=== PATIENT | female | born 1945 | race Caucasian/White ===

== ENCOUNTER 2016-11-26 10:38 | Inpatient (IN) | payer MEDICARE ==
[~2016-11-26] VITALS: Ht 154.9 cm; Wt 72.0 kg
[~2016-11-26 10:38] MED LIST: AMBIEN5 MG PO; ASA CHILDREN'S81 MG PO; ASPIR 8181 MG PO; ASPIR-TRIN325 MG PO; AUGMENTIN875 MG PO; BACTROBAN OINT.22 GM TP; CHROMIUM PICO200 MC1 PO; COREG DPS3.125 MG PO; GG/CODEINE PO; GLUCAGON1 MG/ML IM; GLUCOPHAGE-DPS500 MG PO; GLUTOSE 1537.5 GM PO; GUAIFENESIN-CODE5 ML PO; HUMALOG100 UNIT/1 SQ; JANUVIA50 MG PO; LANTUS SOL100 UNIT/1 SQ; LANTUS100 UNITS/ SQ; LASIX DPS40 MG PO; LASIX DPS80 MG PO; LASIX40 MG PO; LEVAQUIN DPS250 MG PO; LEVEMIR100 UNIT/1 SQ; LOFIBRA160 MG PO; MAALOX DPS30 ML PO; MIRALAX PACKET17 GM PO; MIRALAX17 GM PO; MYCOSTATIN PWD15 GM TP; MYVITALIFE1 EACH PO; NEURONTIN DPS300 MG PO; NITROSTAT0.4 MG SL; NORCO 5-325 TA1 EACH PO; NORVASC5 MG PO; NOVOLIN N,100 UNITS/ SQ; NOVOLOG FL100 UNIT/1 SQ; NOVOLOG100 UNIT/2 SQ; OCEAN NASAL MIS45 ML NS; PROTONIX40 MG PO; SURFAK DPS240 MG PO; SURFAK240 MG PO; THERA1 EACH PO; THERAPEUTIC MUL1 TAB PO; TRICOR145 MG PO; TRICOR48 MG PO; TYLENOL DPS325 MG PO; TYLENOL EXTRA500 M1 PO; TYLENOL325 MG PO; ULTRAM DPS50 MG PO; VICKS VAPORUB O50 GM TP; XANAX DPS0.5 MG PO; ZOCOR DPS40 MG PO; ZOCOR80 MG PO; ZOLOFT DPS50 MG PO; ZOLOFT100 MG PO; [UNRECOGNIZED DRUG - OTHER] PO; [UNRECOGNIZED DRUG - OTHER] PO
--- NOTE | 2016-11-27 12:11 | ER ---
ADMIT: 11/26/2016 RM/LOC: ER [facility] MR#: [id number] [address] [address] [place] [address] Emergency Room Report SEX: F AGE: 71 : 1945 DATE: 11/26/2016 HISTORY OF PRESENT ILLNESS: A 71-year-old female, slipped, fell, twisted her left ankle, and was brought in with complaints of ankle pain. Past history significant for ankle fracture on the same side for which she is plated and screwed, diabetes, hypertension, and hyperlipidemia. PHYSICAL EXAMINATION: GENERAL: Reveals an elderly female, in mild amount of distress. EXTREMITIES: Her left foot is normal. Left ankle is tender in the medial aspect, superior to the ankle itself is also tender. Knee is unremarkable. LUNGS: Clear to auscultation. ABDOMEN: Benign. X-RAY DATA: X-rays reveal a spiral fracture of the distal tibia, just superior to the screws from prior surgery. I did speak with Dr. Licea. The patient will be admitted for spiral fracture of left distal tibia. Dr. Roa was also contacted for admission as he is the primary physician. DIAGNOSIS: Tibial fracture. Kain Oliver MD/ petey JOB #: [id number] CC: Kain Oliver MD, Attending Physician
--- NOTE | 2016-11-30 11:23 | CO ---
ADMIT: 11/26/2016 RM/LOC: 530 [facility] MR#: [id number] [address] [address] [place] [address] Consultation SEX: F AGE: 71 : 1945 DATE OF CONSULTATION: 11/26/2016 ATTENDING PHYSICIAN: Charlie Roa CONSULTING PHYSICIAN: Regino Ayon MD REASON FOR CONSULTATION: Preoperative evaluation after left ankle fracture. HISTORY OF PRESENT ILLNESS: Ronda is a 71-year-old lady, who is well known to us. She has coronary disease and underwent three-vessel bypass surgery in December of 2014. She also underwent mitral valve replacement with a bioprosthetic valve at that time. She has residual aortic insufficiency, mild aortic stenosis, and severe tricuspid regurgitation with elevated pulmonary pressures which are probably secondary. She has been hospitalized on several occasions with hyperkalemia and elevated blood sugars. She has had acute renal failure and junctional bradycardia which has resolved after correction of her potassium. Apparently, she is also receiving some iron infusions now for chronic anemia. She said she was going in today for a doctor's appointment. I think it was to get iron infusion. She has been very weak. She is unable to walk half a block without having to stop because of her shortness of breath. She also has very weak lower extremities and tends to fall. She said she was just trying to go to her appointment when she turned and fell and injured her left ankle. X-rays in the emergency room show a left tibia and fibular fracture. She is scheduled to go to the OR for pinning tomorrow. She has had a previous fracture on the same side. She has not had a lot of palpitations. She complains of phlegm in the back of her throat and difficulty talking. She has been chronically short of breath, but she has not had increasing edema. She is currently lying supine in the bed. She has not had any PND. No definitive anginal type symptoms are described. Her last echo in September showed a preserved ejection fraction with flattening of the intraventricular septum. The right ventricle had mildly reduced systolic function and the replaced mitral valve appeared to be functioning normally, but there was mild aortic stenosis and [id number] aortic insufficiency and severe tricuspid regurgitation with elevated pulmonary pressures approaching 70. ALLERGIES: SHE HAS HAD LISTED ALLERGIES TO MORPHINE. CURRENT MEDICATIONS: 1. Pantoprazole 40 daily. 2. Gabapentin 300 at bedtime. 3. Sertraline 50 daily. 4. Simvastatin 80 at bedtime. 5. Fenofibrate 160 at bedtime. ADMIT: 11/26/2016 RM/LOC: 530 [facility] MR#: [id number] [address] [address] [facility] Micheal [address] [place] [address] Consultation SEX: F AGE: 71 : 1945 6. Lisinopril 5 daily. 7. Carvedilol 3.125 b.i.d. 8. Lasix 40 daily. 9. Alprazolam 0.5 every 6 hours as needed for anxiety. 10.Lantus 35 units in the morning. 11.NovoLog insulin 5 units with meals and sliding scale. 12.Aspirin 81 daily. 13.Multivitamin and docusate as needed. ILLNESSES: 1. Coronary artery disease as described above. 2. Chronic kidney disease. 3. Prior valve replacement. 4. Aortic insufficiency. 5. Tricuspid regurgitation. 6. Hypertension. 7. Insulin-dependent diabetes. 8. Hyperlipidemia. 9. Peripheral neuropathy. 10.History of seizure disorder. 11.She has peripheral vascular disease, status post carotid endarterectomy the day before bypass in 2014. 12.She has anemia, which is chronic. 13.Anxiety. 14.She has had recurrent bradycardia in the setting of acute renal failure and hyperkalemia. PAST SURGICAL HISTORY: 1. Hysterectomy. 2. Bypass surgery. 3. Mitral valve replacement. 4. Left carotid endarterectomy. 5. She has also had previous left ankle orthopedic surgery. SOCIAL HISTORY: She is retired. She is still living independently at home with her . She is accompanied by her daughter. She is hard of hearing. She denies any recent tobacco use, and no alcohol or illicit drug use. FAMILY HISTORY: Her mother had coronary disease, but I do not believe it was premature. There is also family history of stroke. One brother had cancer. Her mother and grandmother had diabetes. REVIEW OF SYSTEMS: As per the HPI. Otherwise, a full 12-point review of systems was reviewed with the patient as much as possible given her current sedation, and noncontributory. PHYSICAL EXAMINATION: VITAL SIGNS: Blood pressure is 132/48, her pulse is ADMIT: 11/26/2016 RM/LOC: 530 [facility] MR#: [id number] [facility] [place] [address], [place] [address] Consultation SEX: F AGE: 71 : 1945 in the 50s, respirations 18. She is afebrile. O2 sats are 98% on supplemental oxygen. SKIN: Warm and dry. Mildly pale. EYES: Sclerae clear. There is mild conjunctival injection. ENT: Oral mucosa is pink and moist. NECK: Bilateral carotid bruits. There is questionable JVD. CHEST: I could only listen to the anterior lung murcia. She cannot sit up. I do not hear any rhonchi or crackles. No wheezes noted. There is a good respiratory effort given her sedation. HEART: Regular. There is a click in the S1 position and there is a holosystolic murmur heard best along the left sternal border. I do not hear a diastolic murmur. ABDOMEN: Soft and nontender. Obese. MUSCULOSKELETAL: Gait is normal. There is brace in her left lower leg. EXTREMITIES: She is in a brace in the left lower leg. The right lower leg has no evidence of edema and her distal pulses are intact. PSYCHIATRIC: She is sedated but she is alert, oriented and answers most of my questions appropriately albeit slowly. LABORATORY DATA: Sodium was 141, potassium 5.5, her glucose is 92, creatinine is 2.1 and that appears to be about her baseline. AST and ALT are normal. Cardiac enzymes are normal. TSH is 7.67. White count is 4.6, hemoglobin is 8.9, platelets 149,000. IMPRESSION: 1. Left fibula and tibia fracture. 2. Prior mitral valve replacement in 2014. 3. Coronary artery disease, status post three-vessel bypass surgery in 2014. 4. Severe tricuspid regurgitation with probable secondary pulmonary hypertension. 5. Aortic insufficiency. 6. Chronic kidney disease. 7. Peripheral vascular disease, status post prior carotid endarterectomy. 8. History of recurrent hyperkalemia and junctional bradycardia. 9. Insulin-dependent diabetes. RECOMMENDATIONS: I think she is fortunate that she has had revascularization and her mitral valve replaced within the past two years. However, she remains [id number]-cp-snil risk for any surgical procedure given her very poor functional status in combination with multiple comorbidities including her ADMIT: 11/26/2016 RM/LOC: 530 [facility] MR#: [id number] [address] [address] [place] [address] Consultation SEX: F AGE: 71 : 1945 residual tricuspid regurgitation, aortic insufficiency, elevated pulmonary pressures, anemia, and chronic kidney disease. Right now, I think her fluid status is fairly optimized, but it will need to be monitored very closely throughout the perioperative period. We will also need to monitor her electrolytes and watch for acute renal failure, which has led to junctional bradycardia in the past. I would advise holding her TREVOR inhibitor while she is in the hospital. We will also need to follow a very strict fluid management. This was discussed with the patient and her family. They are very reasonable and understanding of her multiple comorbidities and potential risk for surgery. Regino Ayon MD/ petey JOB #: [id number] CC: Charlie Roa, Attending Physician Charlie Roa, Family Physician
--- NOTE | 2016-12-01 14:58 | HP ---
ADMIT: 11/26/2016 RM/LOC: 316 [facility] MR#: [id number] [address] [address] [place] [address] History and Physical SEX: F AGE: 71 : 1945 DATE OF SERVICE: CHIEF COMPLAINT: Pain in the left lower leg and ankle, left leg injury due to fall at home on the morning of 11/26/2016. CLINICAL HISTORY: The patient is a 71-year-old white female, admitted to [facility] after being seen in the ER complaining of left lower leg pain and left ankle pain. She fell at home on the morning of 11/26/2016 while getting ready to go to Dr. Bahena's office for an iron infusion/Venofer for her anemia of chronic disease. The patient does not really recall how she fell. She remembers getting lightheaded or weak while standing in her bathroom. She was found by her son lying on the floor, unable to get up, unable to bear weight on her left leg. She was confused and disoriented at that time. She was brought to the ER, where she was evaluated. X-rays done in the ER show fixation hardware from previous open reduction and internal fixation of a fractured left ankle with a new spiral type fracture of the distal tibia as well as fracture of the distal fibula above the level of her old fusion hardware. The patient was seen in consult by Orthopedics, they have asked us to admit her and they will see her in consultation. She will need to go to the OR for open reduction and internal fixation of her left distal tibia and fibula fracture. Dr. Licea has seen her in consultation and planned to take her to the OR on 11/27/2016. The patient unfortunately has a significant surgical risk because of her multiple health problems. She has significant coronary artery disease, valvular heart disease, chronic congestive failure as well as chronic kidney disease, long-standing poorly- controlled diabetes with diabetic peripheral neuropathy and diabetic peripheral vascular disease. As noted, admitted at this time because of her fracture. Based on the description of her fall, it sounds like she probably got hypoglycemic. She notes that she was diaphoretic and clammy before she had the syncopal or near syncopal episode. She does have a history of cardiac dysrhythmia, but EKG in the ER showed her to be in a sinus bradycardia with no significant ST-T wave changes. She is admitted at this time with plans for cardiac preoperative consultation prior to planned surgery on 11/27/2016. PAST MEDICAL HISTORY: The patient has had numerous recent hospitalizations. She was last hospitalized in May of 2016. At that time, she had fallen and suffered a cervical spine fracture of C1. She had been hospitalized in March of 2016 with acute on chronic renal failure with hyperkalemia and cardiac dysrhythmia. She was hospitalized in January of 2016 with weakness, falls, and orthostatics symptoms. She was hospitalized in November of 2015 with an acute decompensation of her chronic diastolic heart failure. In October of 2015, she was hospitalized with acute renal failure, hyperkalemia, and a bradyarrhythmia. She was hospitalized in June of 2015 with a syncopal episode and closed head injury. In December of 2014, she was hospitalized in [place] and underwent a left carotid endarterectomy on 01/01/2015. She then had a three-vessel CABG at the [facility] in [place] in January of 2015. She cannot remember the dates of all these hospitalizations, these are obtained from old records. Her past medical history includes the followin. Multivessel coronary artery disease, status post three-vessel CABG in January ADMIT: 11/26/2016 RM/LOC: 316 [facility] MR#: [id number] [address] [address] [facility] Micheal [address] [place] [address] History and Physical SEX: F AGE: 71 : 1945 of 2014. 2. Severe mitral regurgitation, status post mitral valve replacement in January of 2015 with bioprosthetic valve. 3. Valvular heart disease with moderate aortic insufficiency. 4. Severe pulmonary hypertension with tricuspid regurgitation. 5. Hypertension. 6. Hyperlipidemia. 7. Type 2 diabetes with long-term poor control and multiple microvascular complications. 8. Diabetic peripheral neuropathy. 9. Diabetic nephropathy with chronic kidney disease, stage 3. 10.Anemia of chronic disease. 11.Carotid occlusive disease, status post left carotid endarterectomy in December of 2014. 12.Chronic GERD/esophageal reflux. 13.Depressive disorder, not otherwise specified. 14.Chronic diastolic heart failure. 15.Chronic cerebrovascular disease. 16.Osteoporosis. PAST SURGICAL HISTORY: Her prior surgical procedures include: 1. CABG with mitral valve replacement on 02/02/2015. 2. Left carotid endarterectomy on 01/01/2015. 3. She has a remote past history of HUGH and BSO years ago. 4. She has history of previous open reduction and internal fixation of trimalleolar fracture of her left ankle in May of 2013. 5. Her C1 cervical fracture was managed non-operatively with halo immobilization of her cervical spine. CURRENT MEDICATIONS: Include the followin. Protonix 40 mg daily. 2. Gabapentin 300 mg at bedtime. 3. Sertraline 50 mg daily. 4. Simvastatin 80 mg at bedtime. 5. Fenofibrate 160 mg at bedtime. 6. Lisinopril 5 mg daily. 7. Coreg 3.125 mg b.i.d. 8. Lasix 40 mg daily. 9. Xanax 0.5 mg every 6 hours as needed for anxiety. 10.Lantus 35 units in the a.m. 11.NovoLog 5 units with each meals plus additional sliding scale. 12.Baby aspirin 81 mg daily. 13.Multivitamin 1 daily. 14.Docusate sodium p.r.n. constipation. ALLERGIES: SHE HAS A HISTORY OF REACTION TO MORPHINE PREVIOUSLY, THIS CAUSED SIGNIFICANT ITCHING. ADMIT: 11/26/2016 RM/LOC: 316 [facility] MR#: [id number] [address] [address] [place] [address] History and Physical SEX: F AGE: 71 : 1945 SOCIAL HISTORY: The patient is retired. She has been living independently at home. She is currently in the process of from her , trying to find her own place to live. The patient denies any recent use of tobacco, was a smoker during her younger years. She denies abuse of alcohol or illicit drug use or any misuse of prescription drugs. FAMILY HISTORY: She notes her mother of a heart attack at age 56. Her mother also had similar problems with poorly-controlled diabetes. She notes her father of lung cancer related to his smoking. She has a brother who of colon cancer, another brother who in childhood of leukemia. She also has a sister, who has lung cancer. In her family, there is a strong history of diabetes, coronary artery disease, and cancer. REVIEW OF SYSTEMS: Difficult to get an accurate review of systems at this time per the patient. She has been given IV fentanyl in the ER and has received additional pain medications. She is very lethargic and sleepy, she will arouse. It is noted that she has been struggling at home for the last couple of months, she has difficulty caring for herself due to her generalized weakness and debility. She has been at significant fall risk. I have attempted to get her into a skilled nursing previously and she had resisted. CONSTITUTIONAL: She has had no recent fevers, chills, or signs of any ongoing infection. HEENT: She denies any new eye, ear, nose, or throat complaints. No upper respiratory congestion. She denies any difficulty with choking or swallowing. No coughing after eating. PULMONARY: She has been having marked difficulty with shortness of breath. She has had to start using O2 continuously because of her severe pulmonary hypertension. The patient has pulmonary hypertension related to her valvular heart disease. She has marked dyspnea on exertion. No cough. No sputum production. CARDIAC: Extensive cardiac history with known coronary artery disease status post three-vessel CABG, history of chronic diastolic heart failure. She has had no recent angina. She has history of past bradyarrhythmia associated with hyperkalemia. She has been hospitalized twice with significant bradyarrhythmia due to renal failure and hyperkalemia. GASTROINTESTINAL: No nausea, vomiting, or diarrhea. She has had no blood in her stools. GENITOURINARY: The patient has history of significant chronic renal disease. Baseline creatinine typically is running around 1.8 to 2.0. She denies any flank pain or dysuria. No signs of UTI. MUSCULOSKELETAL: Having severe pain in her left lower leg. Unable to bear weight on her left leg at this time due to her injury. NEUROLOGIC: She has no prior history of strokes or TIAs. She has had difficulty with orthostatic hypotension. It has been difficult to manage her fluid status. The patient is followed by [facility] Cardiology and Dr. Bahena as well. 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 ENDOCRINE: She has long-standing type 2 diabetes with long-term poor control. ADMIT: 11/26/2016 RM/LOC: 316 [facility] MR#: [id number] [address] [address] [place] [address] History and Physical SEX: F AGE: 71 : 1945 She has been noncompliant with her diabetic management for over 20 years. INTEGUMENT: She has no areas of skin breakdown. She does have significant peripheral vascular disease and marked neuropathy of the lower extremities. PHYSICAL EXAMINATION: VITAL SIGNS: Temp is 97.8, pulse is 60, respirations 18, blood pressure 132/48, O2 saturation 98%. Current weight 157 pounds. GENERAL: The patient is a very frail, debilitated 71-year-old female, who looks significantly older than her stated age. She is a little lethargic and sleepy due to her pain medications. HEENT: Her ears are clear. Hearing is somewhat diminished. Pupils are equal and reactive. Sclerae nonicteric. She has some mild conjunctival injection and inflammation. Vision appears to be grossly intact. Her nose and throat are noninflamed. Oral mucosa is moist. No oral lesions. NECK: Noted to have bilateral carotid bruits. I cannot appreciate any significant neck vein distention. No cervical adenopathy. No neck masses. LUNGS: Noted to be clear anteriorly, diminished in the bases. I do not hear any rhonchi, rales, or wheezes. HEART: Noted to have a regular rhythm. There is a holosystolic murmur heard best along the left sternal border, grade 2/6. No evidence of failure on today's exam. ABDOMEN: Soft, nontender. Obese. Protuberant, but not distended. Bowel sounds are normoactive. No CVA or suprapubic tenderness. EXTREMITIES: Her left lower extremity is in a brace and immobilizer for her ankle and lower leg. She is splinted. She has marked pain on palpation of her left lower leg pain, pain over the lateral aspect of her ankle. She has marked changes of diabetic peripheral vascular disease with essentially absent pedal pulses. Skin is very fragile. She has no sensation to light touch or monofilament testing in either lower extremity up to the level of mid calf. The patient is unable to stand or walk at this time. NEUROLOGICAL: I can see no other new focal deficits, but she is sedated. When aroused, she is alert and oriented and is able to answer most of the questions appropriately. LABORATORY AND X-RAY DATA: Her pre-admission laboratory work revealed her white count to be 4600, hemoglobin is 8.9, platelets 149,000. She has chronic anemia due to her chronic kidney disease. Sodium was 141, potassium 5.5. Blood sugar was 92. Creatinine is 2.1. Cardiac enzymes were normal. TSH is elevated. EKG shows a sinus bradycardia with no significant ST-T wave changes. ASSESSMENT AT THE TIME OF ADMISSION: 1. Fall at home on the morning of 11/26/2016. 2. Acute displaced fracture of the distal tibia and fibula of her left lower extremity. 3. Osteoporosis. 4. Atherosclerotic coronary vascular disease, status post three-vessel CABG in January of 2015. 5. Chronic diastolic heart failure. ADMIT: 11/26/2016 RM/LOC: 316 [facility] MR#: [id number] [address] [address] [facility] RONDA Burton [address] [place] [address] History and Physical SEX: F AGE: 71 : 1945 6. Prior mitral valve replacement in 2014. 7. Severe tricuspid regurgitation with secondary pulmonary hypertension. 8. Aortic insufficiency. 9. Chronic kidney disease, stage 3. 10.Anemia of chronic disease. 11.Type 2 diabetes, insulin-dependent, with long-term poor control. 12.Diabetic peripheral vascular disease. 13.Diabetic neuropathy. 14.Chronic obstructive pulmonary disease. 15.Hypertension. 16.Chronic cerebrovascular disease. 17.Marked debility due to her multiple comorbid medical conditions. PLAN: Plan is to admit the patient. Orthopedics has been consulted, they planned to take her to the OR on 11/27/2016. I will ask [facility] Cardiology to see in consultation for preoperative cardiac clearance. We will also ask Dr. Bahena to be involved since he manages her chronic kidney disease and can help manage her fluid status postoperatively. She has a significant surgical risk. We have discussed the risks and benefits of surgery with her and her family. We really have no option other than to proceed with ORIF. The patient will then need long-term skilled nursing care once she recovers from her surgical procedure. Charlie Roa MD/ petey JOB #: [id number] CC: Charlie Roa, Attending Physician Charlie Roa, Family Physician
--- NOTE | 2016-12-06 07:29 | OR ---
ADMIT: 11/26/2016 RM/LOC: 530 [facility] MR#: [id number] [address] [address] [facility] [place] [address] Operative/Delivery Room Report SEX: F AGE: 71 : 1945 SURGERY DATE: 11/27/2016 SURGEON: Matthew Licea MD PREOPERATIVE DIAGNOSES: Left tib-fib fracture with proximal fibular fracture with distal spiral tibia fracture. She had a previous bimalleolar ankle fracture, open reduction and internal fixation on this side as well. POSTOPERATIVE DIAGNOSES: Left tib-fib fracture with proximal fibular fracture with distal spiral tibia fracture. She had a previous bimalleolar ankle fracture, open reduction and internal fixation on this side as well. PROCEDURES: 1. Removal of medial malleolar screws. 2. Intramedullary nailing of left tib-fib fracture. WOOD FORM BUILDER: WANDY Valle ANESTHESIA: General. ESTIMATED BLOOD LOSS: 50 mL. TOTAL TOURNIQUET TIME: Approximately 75 minutes. COMPLICATIONS: None. CONDITION: Guarded to recovery room. INDICATIONS: The patient is a 71-year-old female with multiple medical comorbidities. She underwent an open reduction and internal fixation of a left bimalleolar ankle fracture about 11 or 12 years ago. She was at home, fell, injuring her left lower extremity, was brought to the emergency room, was found have a distal spiral tibia fracture and a proximal fibular fracture. We discussed the injury as well as treatment options with the patient and her family. She was admitted by Dr. Roa and cleared for surgery by Dr. Roa and Cardiology, stating that she was a high risk. We talked to them about treatment options, told them probably the best thing to do at this point would be removal of the medial screws followed by intramedullary nailing of the tibia fracture. We discussed the procedure as well as risks and benefits with them at length, questions were answered, and they agreed to proceed. DESCRIPTION OF PROCEDURE: After informed consent was obtained, the patient was taken to the operating room, placed on the operative table in supine position. General anesthetic was administered. After adequate general anesthesia, the splint was removed from the left lower extremity. A tourniquet was placed on left upper thigh, and left lower extremities were prepped and draped in usual sterile fashion. Once this was completed, we brought in fluoro, identified our medial malleolar screws. We made a small incision medially dissecting down bluntly to the screws. We then placed a ADMIT: 11/26/2016 RM/LOC: 530 [facility] MR#: [id number] [address] [place] [address] Operative/Delivery Room Report SEX: F AGE: 71 : 1945 guidewire for cannulated screw into the posterior screw. We then placed the screw school boat driver over this, removed the screw without difficulty. We removed the anterior screw in a like fashion by placing a guidewire in the screw and then followed by the cannulated screwdriver and removed this screw as well. Once the screws were removed, we then gravity exsanguinated the left lower extremity, inflated the tourniquet to 300 mmHg. We then placed the leg on the tibial triangle. Fluoroscopy was used to get an x-ray of the knee. We then made a midline incision through the skin and subcutaneous tissues, and then making an incision just medial to the patellar tendon. Once this was completed, we placed an awl in the proximal tibia. Once this was noted to be in good position on both AP and lateral views, we advanced the awl down into the proximal tibia which was noted to be in good position on both AP and lateral views. We then placed a guidewire across the fracture site. Once this was completed, we then sequentially reamed over the guidewire beginning with an 8.5 end cutter, and reaming up to a 10.5. We started getting chatter at 9 mm reamer. We elected to use a 10 mm nail. We measured and elected to use a 315 mm length nail. This was then loaded on the advertising inserter, the 315 mm nail, 9 mm in diameter, was then placed over the guidewire and across the fracture. The fracture was slightly translated after placing the jerome, but was in otherwise good alignment and good length here. Anatomic reduction on the lateral view. The guidewire was then removed. We then placed the guide for the proximal locking screws. We placed two proximal locking screws, one static and one dynamic. I made two small stab incisions medially, placed the guide on the medial cortex of the tibia, drilled and placed the screws in standard AO technique. These screws had a moderate bite. Once this was completed, we removed the nail advertising inserter. Attention was directed to the distal portion of the nail. Getting perfect circles, we placed an anterior to posterior screw by making a small stab incision, dissected down bluntly using the radiolucent drill, measuring and placing an anterior to posterior interlocking screw. This had not a real great bite. We then placed a medial to lateral screw as well, once again getting perfect circles, which was somewhat difficult secondary to the previous fibular plate and screws. We identified the medial to lateral screw hole, placed radiolucent drill after ADMIT: 11/26/2016 RM/LOC: 530 [facility] MR#: [id number] [address] [address] [facility] RONDA Burton [address] [place] [address] Operative/Delivery Room Report SEX: F AGE: 71 : 1945 making a kacie incision, drilled, measured, and placed a medial to lateral screw with a pretty good bite with the screw. Once this was completed, final fluoroscopic views were obtained showing adequate reduction of the tibia fracture in both the AP and lateral views, and the nail and screws were in good position. We then copiously irrigated the wounds. We closed all the stab wounds at this point using skin rc. The midline knee incision, the parapatellar incision was closed using #1 Vicryl in a [id number] fashion. Subcutaneous tissues were closed using 2-0 Vicryl in a simple interrupted fashion. The skin was closed using skin rc. A sterile compressive dressing was then applied consisting of Xeroform, plain gauze, ABDs, Webril. We then placed a posterior splint, overwrapped with an Roger wrap. The patient was then transferred to recovery room in guarded condition. Matthew Licea MD/ petey JOB #: [id number] CC: Charlie Roa, Attending Physician Charlie Roa, Family Physician
--- NOTE | 2016-12-06 07:29 | CO ---
ADMIT: 11/26/2016 RM/LOC: 316 [facility] MR#: [id number] [address] [address] [facility] [place] [address] Consultation Report SEX: F AGE: 71 : 1945 DATE OF CONSULTATION: 11/26/2016 ATTENDING PHYSICIAN: Charlie Roa CONSULTING PHYSICIAN: Matthew Licea MD HISTORY OF PRESENT ILLNESS: This is a 71-year-old female, who was stating that she became trembly with her legs and was unable to find a chair to sit down and she ended up twisting her left ankle and fell to the ground, and she is being brought to the Emergency Department for left ankle pain. The patient states that she had broken her ankle in the past. She has some left ankle pain and some slight left shoulder pain, but has no other complaints. She states that she did not lose consciousness and remembers the events quite clearly. PAST MEDICAL HISTORY: Significant for previous left ankle fracture fixed by Dr. Licea in 2004. Also, significant for diabetes, hypertension, and hyperlipidemia. ALLERGIES: NO KNOWN DRUG ALLERGIES. PHYSICAL EXAMINATION: GENERAL: Reveals an elderly female, somewhat distressed, but is alert and oriented. EXTREMITIES/MUSCULOSKELETAL: Physical exam of the left lower extremity show that the ankle is resting comfortably in posterior splint. Left lower extremity is neurovascularly intact. The patient has full sensation of the foot and can move all toes. The patient is tender to palpation along the distal medial aspect of her left ankle. She is also tender to palpation along the superior lateral aspect of her left leg on the fibular side. Physical exam of shoulder, left shoulder is unremarkable. She has some pain to palpation. Physical exam of other systems are noncontributory at this point. X-RAY EVALUATION: X-rays performed in the Emergency Department do show a left distal tibial spiral fracture just above two previous cannulated screws that were in place. On x-rays of the left tibia, also show a proximal left fibular fracture at this time. ASSESSMENT AND PLAN: At this time, she is going to be admitted, seen by medical primary care, and the plan is to admit for with a left inter-medullary nail for fixation of the tibial fracture per Dr. Licea. Verbal consent, and explanation of the procedure's risks and benefits were discussed with the patient as well as family members that were present. All questions and ADMIT: 11/26/2016 RM/LOC: 316 [facility] MR#: [id number] [address] [place] [id number] [address] Consultation Report SEX: F AGE: 71 : 1945 concerns about the procedure were answered at that time and everyone in the room agreed to move forward with the planned procedure for the morning of 11/27/2016. Upon admission, the patient is going to be seen by primary care and she is going to be admitted and surgery will have a first thing in the morning if she is cleared medically and stable. The patient and family were seen in the ER both by myself and Dr. Licea this afternoon and we believe we answered all the questions concerns the patient and the family members had. We are going to surgically fix the left tibial fracture and we are not going to do surgical intervention on the left fibular fracture as that will heal with weight restrictions postsurgically for the left tibia. EDIT: 11/29/2016 0913 njv WANDY Reyes / Matthew Licea MD / petey JOB #: [id number] CC: Charlie Roa, Attending Physician Charlie Roa, Family Physician
--- NOTE | 2016-12-06 10:33 | CO ---
ADMIT: 11/26/2016 RM/LOC: 316 [facility] MR#: [id number] [address] [address] [facility] [place] [address] Consultation SEX: F AGE: 71 : 1945 DATE OF CONSULTATION: 11/28/2016 ATTENDING PHYSICIAN: Charlie Roa CONSULTING PHYSICIAN: Stanislav Bahena MD REASON FOR CONSULTATION: Acute kidney injury on chronic kidney disease stage 3. HISTORY OF PRESENT ILLNESS: The patient is a 71-year-old female, who has had several hospitalizations over the last one year. She presented to the hospital at this time couple days ago after an episode where she felt weak and twisted her ankle and fell to the ground. She was noted to have a left distal tibial fracture and was taken to the OR yesterday. Her admission serum creatinine was 2.1, which is close to her general baseline creatinine of around 1.8. Prior to surgery, she had a creatinine of 2.4. She had her surgery yesterday and postoperatively was hypotensive and had a rapid response following which she was transferred to the ICU as a PCU status. She has received almost 3 L of IV fluids since admission. Her diastolic blood pressures continued to be low. This morning, her creatinine was noted to be 2.8 that upon recheck was slight stable to slightly better at 2.7. She was also noted to be hyperkalemic and upon chest x-ray, was noted to have some prominent interstitial markings because of which her IV fluids were stopped and she was given a dose of furosemide. She was also noted to have urinary retention and has a Landrum catheter in situ. She is nonoliguric at this time. At the time of this encounter, she is accompanied by her family. She is sitting in a recliner. She denies any pain in her left ankle and notes that it is well controlled with medications. She notes that her breathing is fair. Denies any chest pain or dizziness. She feels very weak and has no appetite. Otherwise, denies any complaints. She notes that she is puffy. REVIEW OF SYSTEMS: A complete review of systems is negative in detail except as mentioned in history of present illness above. PAST MEDICAL HISTORY: 1. Hypertension. 2. Dyslipidemia. 3. Aortic insufficiency. 4. Coronary artery disease, status post CABG in December of 2014. 5. Multiple episodes of acute kidney injury. She has required renal replacement therapy post CABG in December of 2014. 6. Severe mitral regurgitation with mitral valve replacement in December of 2014. 7. Type 2 diabetes mellitus. 8. Peripheral neuropathy. 9. Recurrent acute kidney injury. 10.Seizure disorder. 11.Hysterectomy. ADMIT: 11/26/2016 RM/LOC: 316 [facility] MR#: [id number] [address] [place] [id number] [place] [address] Consultation SEX: F AGE: 71 : 1945 12.Anemia. 13.Anxiety. 14.Ovarian cancer, status post ovarian tumor removal. 15.Depression. 16.Left ankle fracture twice. 17.Left carotid endarterectomy. ALLERGIES: MORPHINE. MEDICATIONS: Reviewed in the chart. Her antihypertensives, including Coreg, have been held. FAMILY HISTORY: One of her cousins had chronic kidney disease and received kidney transplant. No other family history of chronic kidney disease or renal replacement therapy. SOCIAL HISTORY: She currently lives at home. Lifelong nonsmoker. No ongoing tobacco, alcohol, or recreational drug use. PHYSICAL EXAMINATION: VITAL SIGNS: Temperature 96.8 Fahrenheit, pulse 63, blood pressure 114/36, saturating 100% on 2 L nasal cannula. GENERAL: She is comfortable in her recliner. HEENT: Head is nontraumatic and normocephalic. Extraocular movements are intact. Pale conjunctivae. Dry mucosa. NECK: Supple without any JVD. CHEST: Decreased breath sounds bilaterally, but no wheezes or crackles. CVS: Regular rate and rhythm, she has a systolic murmur in her aortic area. ABDOMEN: Soft, nontender. EXTREMITIES: Her left lower extremity edema is wrapped in a bandage. She has edema of her lower as well as upper extremities. SKIN: No rash or nodules. NEUROLOGIC: Alert, awake, and oriented x3. LABORATORY AND X-RAY DATA: Laboratory data was reviewed. Her BMP this morning showed a sodium of 137, potassium 6.1, creatinine is 2.7, CO2 of 26, calcium 7.7, magnesium 2.5. Hemoglobin is 7.2. Chest x-ray with interstitial edema without any pleural effusions this morning. ASSESSMENT AND PLAN: 1. Acute kidney injury on chronic kidney disease stage 3 - This is prerenal in etiology based on her urinalysis. 2. Edema - She has received diuretics this morning. 3. Hyperkalemia - Status post insulin/D50 earlier today. She is on telemetry. 4. Urinary retention - Status post Landrum catheter. ADMIT: 11/26/2016 RM/LOC: 316 [facility] MR#: [id number] [facility] [address] [address] [facility] Micheal [address] [place] [address] Consultation SEX: F AGE: 71 : 1945 Her intravascular volume status is difficult to assess. Obviously, I am concerned about her low diastolic blood pressures. She has received diuretics this morning. She is planned for a basic metabolic panel in a few minutes from now and we will follow those up to note her potassium and her serum creatinine. Otherwise, we will continue supportive care and monitor her kidney function moving forward. She is volume expanded extravascularly and will likely need diuretics moving forward. Obviously, the rate of diuresis will be determined by her hemodynamics. Thank you for this consultation and allowing me the opportunity to participate in this patient's care. Please do not hesitate to contact me with any questions. Stanislav Bahena MD/ petey JOB #: [id number] CC: Charlie Roa, Attending Physician Charlie Roa, Family Physician
--- NOTE | 2017-01-10 12:53 | DS ---
ADMIT: 11/26/2016 RM/LOC: 420 [facility] MR#: [id number] [address] [address] [facility] [address] General Discharge Summary SEX: F AGE: 71 : 1945 ADMISSION DATE: 11/26/2016 DISCHARGE DATE: 12/03/2016 ADMITTING DIAGNOSIS: As per history and physical. FINAL DIAGNOSES: 1. Fracture of the left distal tibia and fibula, closed fracture status post open reduction internal fixation. 2. Acute respiratory failure with hypoxia. 3. Acute kidney failure superimposed on chronic kidney disease, stage 3. 4. Acute on chronic diastolic congestive heart failure. 5. Acute respiratory failure with hypercapnia. 6. Type 2 diabetes with chronic kidney disease. 7. Diabetic peripheral neuropathy. 8. Anemia of chronic disease. 9. Chronic hypertensive and diabetic kidney disease. 10.Chronic diastolic congestive heart failure. 11.Type 2 diabetes with long-term poor control. 12.Anemia of chronic disease. 13.Fall at home prior to admission on 11/26/2016. 14.Hyperlipidemia. 15.Valvular heart disease with aortic insufficiency and mitral stenosis. 16.Chronic cerebrovascular disease. 17.Atherosclerotic coronary vascular disease, status post coronary artery bypass grafting. 18.Chronic obstructive pulmonary disease. 19.Severe pulmonary hypertension. 20.Presbycusis. 21.Hyperkalemia. 22.Chronic kidney disease, stage 3. 23.Chronic anxiety disorder. 24.Carotid occlusive disease. 25.Chronic gastroesophageal reflux disease/esophageal reflux. 26.Major depressive disorder. 27.Osteoporosis with current pathologic fracture of the tibia and fibula. 28.Status post mitral valve replacement. PROCEDURES: The patient had an open reduction, internal fixation of her fractured tibia and fibula on 11/27/2016, the patient did receive transfusion with packed cells on 11/29/2016. CLINICAL HISTORY: The patient is a 71-year-old, disabled white female admitted to [place] after being seen in the ER complaining of severe pain in her left ankle and left lower leg. The patient fell at her home this a.m. injuring her left lower extremity. She has a past history of previous fracture of the left ankle in May of 2015, status post open reduction, internal fixation with hardware still in place. The patient was unable to bear weight on her leg after she fell injuring her left lower extremity. She was brought to the ER where x-rays were obtained and it showed a fracture ADMIT: 11/26/2016 RM/LOC: 420 [facility] MR#: [id number] [address] [place] [address] General Discharge Summary SEX: F AGE: 71 : 1945 above the hardware with fracture of both tibia and fibula of her left lower extremity. The patient was admitted with fracture of her left tib-fib, but is felt to be a very poor operative candidate due to her severe cardiopulmonary disease. The patient was admitted for pain management as well as preoperative consultation to determine whether or not she can be taken to surgery for open reduction, internal fixation of this lower extremity fracture. For further details of her clinical history as well as past medical history and pertinent findings on physical exam, please see dictated history and physical. Please also see dictated consultations. The patient was seen by Dr. Regino Ayon from [facility] Cardiology, Dr. Matthew Licea was orthopedic consult, Dr. Bahena is her lawnmower mechanic and consulted for her chronic kidney disease. LABS AND X-RAY SUMMARY FROM THIS ADMISSION: For complete details of lab, please see cumulative laboratory summary included in the chart. Brief synopsis of lab; her initial CBC on admission showed a white count of 4600, hemoglobin of 8.9, hematocrit 30.6. On her second hospital day, hemoglobin was 8.5 and hematocrit 28.9. On her third hospital day, hemoglobin dropped to 7.2 with hematocrit of 24.1. On her 4th hospital day, 11/29/2016, hemoglobin was 6.8 with hematocrit of 23.2, this is felt to be acute blood loss anemia superimposed on her anemia of chronic disease. She was then transfused. Following transfusion, her hemoglobin was 9.3 with hematocrit of 29.4. At discharge, her white count was 4600, hemoglobin was 8.2, hematocrit 28.3. Renal function parameters were monitored daily because of her chronic kidney disease. On admission, her sodium was 141, potassium was 5.5, BUN was 57 with a creatinine of 2.1. On her second hospital day, creatinine was 2.4, and BUN was 59. On admission, her lactic acid was 3.4. On her third hospital day, sodium was 137, potassium had eleanor to 6.1, BUN was 59 with a creatinine of 2.8. At discharge; sodium was 137, potassium 5.2, her BUN was 61 with a creatinine of 2.6. Urinalysis on admission was clear. Her fingerstick blood sugars were monitored serially throughout the hospitalization. They ranged from a low of 77 to a high of 292 during this hospitalization. Blood gases done on 11/28/2016, showed a pH of 7.21, pCO2 of 61, and PO2 of 233. Repeat blood gases on 11/28/2016, showed a pH of 7.31, pCO2 of 53, and PO2 of 81. Her hemoglobin A1c during this hospitalization was 6.7. TSH was elevated at 7.67. The patient did receive 2 units of packed cells on 11/29/2016 for her anemia. Blood type is noted to be O positive with negative antibody screen. X-ray studies included a lung scan done on 11/28/2016 that showed no suspicious findings to suggest pulmonary embolus. Low probability of pulmonary embolus noted on lung scan. Serial chest x-rays showed changes of COPD with chronic interstitial markings consistent with pulmonary edema. The patient did have initial x-rays, which showed a fracture of the proximal left fibula and distal left tibia. The patient had open reduction, internal fixation of her fractured tibia and fibula on 11/27/2016. EKGs during this hospitalization showed sinus rhythm with low voltage, no evidence of acute ischemia or significant rhythm abnormality. HOSPITAL COURSE: The patient was admitted to fourth floor telemetry. At the time of admission, Cardiology and Nephrology consults were obtained to help ADMIT: 11/26/2016 RM/LOC: 420 [facility] MR#: [id number] [address] [address] [place] [address] General Discharge Summary SEX: F AGE: 71 : 1945 ready the patient for planned surgery. Dr. Licea was also consulted. She was felt to be a very poor surgical candidate, very high risk with risk for respiratory failure postoperatively due to her severe pulmonary hypertension and chronic diastolic heart failure. Ultimately, it was felt that we had her stable enough for surgery, and she was taken to the OR on 11/27/2016. Postoperatively, she did have significant acute respiratory failure and had to be left on the ventilator. Her kidney function worsened in the immediate postoperative period. In that immediate postoperative period, she had significant respiratory distress and had to be transferred to the ICU after we made it through the first 24 hours, her respiratory status improved. Cardiology and Nephrology assisted with management of her fluid balance. Her renal function remained significantly impaired throughout the hospitalization. She did have to be transfused and was given 2 units of packed cells. Her condition slowly improved, and we had no further major complications other than her significant anemia, which required transfusion. Renal function slowly improved over the remainder of her postoperative stay. Ultimately, she was felt to have recovered well enough to transfer to a assisted. She will need to be nonweightbearing on her left lower extremity for the next 6 weeks. She was placed in a boot immobilizer by Dr. Licea. Arrangements were made for her to be transferred to the [facility] fci unit bed on 12/03/2016. Plans were made for orthopedic followup with Dr. Licea and continued Nephrology followup with Dr. Bahena. She is to see Dr. Bahena in his office in 10 to 14 days. DISCHARGE MEDICATIONS: Her medications at dismissal were to include: 1. Baby aspirin 1 daily. 2. Ferrous sulfate 325 mg daily. 3. Lasix 80 mg b.i.d. 4. Neurontin 300 mg at bedtime. 5. Protonix 40 mg daily. 6. Multivitamin 1 daily. 7. Zocor 80 mg at bedtime. 8. Zoloft 50 mg daily. 9. DuoNeb via twin jet nebulizer q.i.d. 10.Levemir 15 units at bedtime. 11.Lovenox 30 mg subcu daily. 12.NovoLog via sliding scale q.i.d. 13.Kenalog cream applied to her rash twice daily. 14.Benadryl 25 mg 1 every 6 hours p.r.n. itching. 15.Glutose 75 g p.r.n. signs or symptoms of hypoglycemia. 16.Hydrocodone 5/325, 1 every 4 hours for pain. 17.Maalox 30 mL q.4 hours p.r.n. indigestion. 18.Milk of magnesia p.r.n. constipation. 19.Senokot-S 1 b.i.d. for constipation. 20.Tylenol 650 mg every 6 hours p.r.n., minor discomfort. 21.Xanax 0.5 mg q.6 hours p.r.n. anxiety. 22.Glucagon 1 mg IM p.r.n. severe hypoglycemia. 23.Dulcolax suppository per rectum p.r.n. constipation. ADMIT: 11/26/2016 RM/LOC: 420 [facility] MR#: [id number] [id number] [facility] [address] [place] [id number] [place] [address] General Discharge Summary SEX: F AGE: 71 : 1945 24.Nitrostat sublingual p.r.n. chest pain. Plans are to follow up with her at the fci unit in 4 to 5 days. We will have lab work drawn on 12/06/2016 to include a CBC and a BMP. She is to continue on O2 continuously at 2 L. At the time of transfer, I do note that she is a no code, do not resuscitate, but we will continue with aggressive management of all of her chronic medical problems. CONDITION AT DISCHARGE: Stable. PROGNOSIS: Long-term prognosis is extremely guarded in view of the severity of her cardiopulmonary disease. Charlie Roa MD/ modl JOB #: [id number] CC: Charlie Roa MD, Attending Physician Charlie Roa MD, Family Physician
[2017-01-27] MEDS ORDERED: TYLENOL DPS325 MG PO (09:21)
[2017-01-27] MEDS ORDERED: XANAX DPS0.5 MG PO (09:21)
[2017-01-27] MEDS ORDERED: KLOR-CON M2020 ME1 PO (09:22)
[2017-01-27] MEDS ORDERED: NITROSTAT0.4 MG SL (09:23)
[2017-01-27] MEDS ORDERED: LASIX40 M1 PO (09:24)
[2017-01-27] MEDS ORDERED: LANTUS100 UNITS/ SQ (09:24)
[2017-01-27] MEDS ORDERED: LIPITOR40 MG PO (09:25)
[2017-01-27] MEDS ORDERED: DUONEB DPS3 ML IH (09:25)
[2017-01-27] MEDS ORDERED: NOVOLOG100 UNIT/2 SQ (09:26)
[2017-01-27] MEDS ORDERED: COLACE-DPS100 MG PO (09:26)
[2017-01-27] MEDS ORDERED: PEPCID DPS20 MG PO (09:26)
[2017-01-27] MEDS ORDERED: GLUCAGON HCL1 MG IM (09:27)
[2017-01-27] MEDS ORDERED: MAALOX DPS30 ML PO (09:27)
[2017-01-27] MEDS ORDERED: GLUTOSE 1537.5 GM PO (09:27)
== END 2016-12-03 13:04 | DRG 492 ==
LOC: ER 10:38 → 3ICU 11:36 → 5MS 11:36 → 4PCU 11:36 → 3ICU 11-28 04:38 → 4PCU 12-02 14:14
PROVIDERS: ADMIT Family Medicine
PROC: 0SPG04Z Removal of Internal Fixation Device from Left Ankle Joint, Open Approach (ICD-10-PCS; principal; 2016-11-27)
PROC: 0QHH36Z Insertion of Intramedullary Internal Fixation Device into Left Tibia, Percutaneous Approach (ICD-10-PCS; principal; 2016-11-27)
PROC: 30233N1 Transfusion of Nonautologous Red Blood Cells into Peripheral Vein, Percutaneous Approach (ICD-10-PCS; 2016-11-29)
DX: S82.302A Unspecified fracture of lower end of left tibia, initial encounter for closed fracture (principal); J96.01 Acute respiratory failure with hypoxia; N17.9 Acute kidney failure, unspecified; I50.33 Acute on chronic diastolic (congestive) heart failure; J96.02 Acute respiratory failure with hypercapnia; E11.22 Type 2 diabetes mellitus with diabetic chronic kidney disease; E11.42 Type 2 diabetes mellitus with diabetic polyneuropathy; E11.649 Type 2 diabetes mellitus with hypoglycemia without coma; D62 Acute posthemorrhagic anemia; I13.0 Hypertensive heart and chronic kidney disease with heart failure and stage 1 through stage 4 chronic kidney disease, or unspecified chronic kidney disease; N18.3 Chronic kidney disease, stage 3 (moderate); E11.65 Type 2 diabetes mellitus with hyperglycemia; S82.832A Other fracture of upper and lower end of left fibula, initial encounter for closed fracture; D63.8 Anemia in other chronic diseases classified elsewhere; W19.XXXA Unspecified fall, initial encounter; E11.9 Type 2 diabetes mellitus without complications; E78.5 Hyperlipidemia, unspecified; I35.2 Nonrheumatic aortic (valve) stenosis with insufficiency; I67.9 Cerebrovascular disease, unspecified; I25.10 Atherosclerotic heart disease of native coronary artery without angina pectoris; J44.9 Chronic obstructive pulmonary disease, unspecified; G40.909 Epilepsy, unspecified, not intractable, without status epilepticus; H91.90 Unspecified hearing loss, unspecified ear; R33.9 Retention of urine, unspecified; I95.81 Postprocedural hypotension; E87.5 Hyperkalemia; I08.2 Rheumatic disorders of both aortic and tricuspid valves; I27.2 Other secondary pulmonary hypertension; F41.9 Anxiety disorder, unspecified; I65.29 Occlusion and stenosis of unspecified carotid artery; D63.1 Anemia in chronic kidney disease; K21.9 Gastro-esophageal reflux disease without esophagitis; F32.9 Major depressive disorder, single episode, unspecified; M81.0 Age-related osteoporosis without current pathological fracture; Z79.4 Long term (current) use of insulin; Z95.1 Presence of aortocoronary bypass graft; Z95.3 Presence of xenogenic heart valve; Z79.82 Long term (current) use of aspirin; Z87.891 Personal history of nicotine dependence; Z82.49 Family history of ischemic heart disease and other diseases of the circulatory system; Z91.81 History of falling; I07.1 Rheumatic tricuspid insufficiency; Z66 Do not resuscitate

== ENCOUNTER 2016-12-03 13:16 | Inpatient (IN) | payer MEDICARE ==
[~2016-12-03] VITALS: Ht 154.9 cm; Wt 71.5 kg
--- NOTE | ~2016-12-03 | WND ---
ADMIT: 12/03/2016 RM/LOC: Pato [facility] MR#: [id number] [address] [address] [place] [address] W[facility] Care Clinic SEX: F AGE: 71 : 1945 DATE OF VISIT: 12/07/2016 TIME IN: 1535 hours. TIME OUT: 1555 hours. REASON FOR VISIT: Evaluation of left lower extremity for any pressure areas. This is a request for wound care from Dr. Roa. HISTORY OF PRESENT ILLNESS: This is a 71-year-old, female, who fell at home on the morning on 11/26/2016. She was seen in the emergency room and was noted to have a spiral-type fracture of the distal tibia as well as a fracture of the distal fibula above the level of her old fusion hardware. She was seen by Dr. Licea, who took her to the operating room on 11/27/2016. Dr. Licea removed the old medial malleolar screws from a previous fracture. She did an intramedullary nailing of the left tib-fib fracture. She was noted to have a previous bimalleolar ankle fracture with open reduction and internal fixation. She is followed by Cardiology for coronary artery disease with a mitral valve replacement and bioprosthetic valve. She has residual aortic insufficiency, mild aortic stenosis, and severe tricuspid regurgitation with elevated pulmonary pressures. She also has a history of renal failure and has been hospitalized with hyperkalemia and elevated blood sugars. She has had junctional bradycardia that resolved with correction of her potassium. She also receives iron infusion for chronic anemia. She is currently at [facility] jail unit for rehabilitation. She does have a boot on her left lower extremity. [facility] to make sure there are no pressure areas on her left leg. PAST MEDICAL HISTORY: Cervical spine fracture of C1 in 2016. Chronic renal failure with hyperkalemia and cardiac dysrhythmia. Weakness, falls, orthostatic symptoms. Acute decompensation of chronic diastolic heart failure. Hospitalized previously for acute renal failure with hyperkalemia and bradyarrhythmia. Hospitalized with syncopal episode in a closed head injury. Left carotid endarterectomy. Three-vessel CABG. Multivessel coronary artery disease, status post triple CABG. Severe mitral regurgitation, status post mitral valve replacement with bioprosthetic valve. Valvular heart disease with moderate aortic insufficiency. Severe pulmonary hypertension with tricuspid regurgitation. Hypertension. Hyperlipidemia. 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 Diabetic peripheral neuropathy. Diabetic nephropathy with chronic kidney disease stage 3. Anemia of chronic disease. Carotid occlusive disease, status post left carotid endarterectomy. Chronic gastroesophageal reflux disease. Depressive disorder. Chronic diastolic heart failure. Chronic cerebrovascular accident. Osteoporosis. PAST SURGICAL HISTORY: CABG with mitral valve replacement, 02/07. Left carotid endarterectomy, 01/08. Remote past history of HUGH and BSO. History of previous open reduction and internal fixation of trimalleolar fracture of left ankle, May 2013. C1 cervical fracture managed non-operatively with halo immobilization. ADMIT: 12/03/2016 RM/LOC: S.337 [facility] MR#: [id number] [address] [place], [place] [id number] [place] [address] [facility] Clinic SEX: F AGE: 71 : 1945 ALLERGIES: Morphine that caused significant itching. CURRENT MEDICATIONS: Per the MAR. Please see the MAR for further details. 1. Children's aspirin. 2. Coreg. 3. Feosol. 4. Lasix. 5. Neurontin. 6. Protonix. 7. Therapeutic multivitamins. 8. Zestril. 9. Zocor. 10.Zoloft. 11.DuoNeb. 12.Levemir. 13.Lovenox. 14.NovoLog. 15.Kenalog. PRN medications: 1. Benadryl. 2. Glutose. 3. Hydrocodone/acetaminophen. 4. Maalox. 5. Milk of magnesia. 6. MiraLax. 7. Robitussin. 8. Senokot. 9. Tums. 10.Tylenol. 11.Xanax. 12.DuoNeb. 13.Glucagon. 14.Dulcolax suppository. 15.Tylenol suppositories. 16.Nitrostat. FAMILY HISTORY: Obtained from previous records show her mother of a heart attack at age 56. Mother had poorly controlled diabetes. Father of lung cancer related to smoking. A brother of colon cancer. Another in childhood of leukemia. Sister with lung cancer. Family history of diabetes, coronary artery disease, and cancer. SOCIAL HISTORY: She is currently residing at [facility]. She is retired. She had been living independently at home. She is in the process of from her . Denies any recent tobacco use but did smoke when she was younger. No alcohol or illicit drug use. ADMIT: 12/03/2016 RM/LOC: Pat[facility] MR#: [id number] [address] [place], [place] [address] [place] [address] Wound Care Clinic SEX: F AGE: 71 : 1945 REVIEW OF SYSTEMS: She is examined in the jail unit where she is awake, alert, and oriented x3. She has been dealing with a congestive cough and sometimes has noticed some "rattling" when she breathes. She did have a workup today for respiratory illnesses and a chest x-ray. She states her chest hurts when she coughs, but otherwise it is fine. No shortness of breath. She denies any fever or chills. Her appetite is good. She denies any abdominal discomfort. No nausea or vomiting. She states her left leg "mullen." PHYSICAL EXAMINATION: VITAL SIGNS: Show a temperature of 97.7, pulse 58, respirations 20, blood pressure standing 132/52, sitting 133/84, lying 104/45. O2 sats on nasal cannula 99%. Focused exam to left lower extremity shows leg with no swelling. Dorsalis pedis is 2+. Posterior tibialis is 1+. She has bruising that is noted on the anterior garrett that measures 17 cm x 7 cm in various stages of purplish yellow. There is bruising on the inner heel that is 3 x 7.5 cm again and various states of purple and yellow. On the left knee is an incision anteriorly that measures 6.5 cm with [address] No surrounding erythema or induration. On the medial side below her left knee are 2 incisions each measuring 1.5 cm with 3 rc each. No surrounding erythema or induration. Below the knee on the lateral side is an incision that is 2 cm with 4 rc intact. To the lower ankle on the anterior side is a 1 cm incision with 3 cr. More medially is one that measures 0.6 cm with 2 rc and another 2.5 cm with 4 rc. No rc have any surrounding erythema or induration. The only drainage noted is dried blood. ASSESSMENT: Left tib-fib fracture, status post surgical fixation with no pressure areas noted. ADMIT: 12/03/2016 RM/LOC: S.337 [facility] MR#: [id number] [address] [address] [place] [address] Wound Care Clinic SEX: F AGE: 71 : 1945 TREATMENT PLAN: The old dried blood was removed gently. Xeroform was applied to the rc with 4x4s and ABD's 2 over the knee and 1 over the ankle. Cast cotton was then wrapped circumferentially around the leg, covered with an Roger wrap in [id number] fashion over her foot and a larger Roger wrap going up her leg and a second one going down her leg. After this, her foot brace was replaced. Nursing staff will contact Orthopedics to see how often this needs to be checked or replaced. Thank you for this referral and Wound Care will follow in the future if needed. Charla Calloway APRN/ petey JOB #: [id number] CC: Charlie Roa, Attending Physician Charlie Roa, Family Physician
--- NOTE | 2016-12-05 12:14 | NUR ---
INTERVIEW FOR MDS 3.0-DONE WITH ADMISSION ON 12/03/16: PT. IS ALERT, SOMEWHAT VISUALLY DEPRESSED, SOME FORGETFULNESS, ORIENTED X 3. PRIOR TO HOSPITALIZATION AND ADMISSION TO [facility], SHE LIVED AT HER HOME, BUT NOW IS IN THE PROCESS OF SEPERATING FROM SPOUSE OF 40+ YEARS. WANTS TO GO TO A ASSISTED LIVING ON DISCHARGE, STATES DOES NOT WANT TO GO BACK HOME. PT. WAS INDEPENDENT AT HOME, DID ALL HER OWN CARES AND MOBILITY NEEDS. WAS ABLE TO CARE FOR HERSELF AFTER TOILETING. WAS ASSISTED TO COMMODE ON ADMISSION WITH THE USE OF A WALKER AND A GAIT BELT, SHE IS UNABLE TO DO HER PERICARES DUE TO MAINTAINING BALANCE TO DUE FX OF LT ANKLE, HAS BOOT ON AND IS NWB TO LT. LEG. PT. IS COMPULSIVE ON ADMISSION, NEEDING REMINDING TO CALL FOR ASSISTANCE WITH ANY MOBILITY OR NURSING NEEDS, SHE STATES AT HOME SHE HAD TO DO THINGS INDEPENDENTLY AND IS USED TO BEING INDEPENDENT, NOT ASKING FOR HELP. PT. DENIES ANY THOUGHTS OF SUICIDE OR SELF HARM. STATES SHE SLEEPS PRETTY GOOD, EATS PRETTY GOOD. STATES HER SON HELP HER AT TIMES AND HAD FOUND HER AT HOME AFTER SHE HAD FALLEN. HAS HOME O2 THAT SHE WEARS ALL THE TIME AND HAS A CONCENTRATOR AT HOME [facility]RU [facility]. STATES SHE HAS FALLEN SEVERAL TIMES OVER THE LAST FEW YEARS, SUFFERED FX BEFORE. MDS INTERVIEW AND ADMISISON COMPLETED AT THIS TIME, AND WISHED HER A GOOD REST OF THE DAY AND GLAD SHE IS AT [facility].
[2017-01-27] MEDS ORDERED: TYLENOL DPS325 MG PO (09:21)
[2017-01-27] MEDS ORDERED: XANAX DPS0.5 MG PO (09:21)
[2017-01-27] MEDS ORDERED: KLOR-CON M2020 ME1 PO (09:22)
[2017-01-27] MEDS ORDERED: NITROSTAT0.4 MG SL (09:23)
[2017-01-27] MEDS ORDERED: LANTUS100 UNITS/ SQ (09:24)
[2017-01-27] MEDS ORDERED: LASIX40 M1 PO (09:24)
[2017-01-27] MEDS ORDERED: DUONEB DPS3 ML IH (09:25)
[2017-01-27] MEDS ORDERED: LIPITOR40 MG PO (09:25)
[2017-01-27] MEDS ORDERED: NOVOLOG100 UNIT/2 SQ (09:26)
[2017-01-27] MEDS ORDERED: COLACE-DPS100 MG PO (09:26)
[2017-01-27] MEDS ORDERED: PEPCID DPS20 MG PO (09:26)
[2017-01-27] MEDS ORDERED: GLUCAGON HCL1 MG IM (09:27)
[2017-01-27] MEDS ORDERED: GLUTOSE 1537.5 GM PO (09:27)
[2017-01-27] MEDS ORDERED: MAALOX DPS30 ML PO (09:27)
== END 2016-12-09 08:00 | disposition short-term general hospital (02) | DRG 560 ==
LOC: SNU 13:16
PROVIDERS: ADMIT Family Medicine
PROC: F07M3ZZ Motor Function Treatment of Musculoskeletal System - Whole Body (ICD-10-PCS; principal; 2016-12-07)
PROC: F08Z4ZZ Home Management Treatment (ICD-10-PCS; principal; 2016-12-07)
PROC: F06ZDZZ Swallowing Dysfunction Treatment (ICD-10-PCS; principal; 2016-12-07)
DX: S82.302D Unspecified fracture of lower end of left tibia, subsequent encounter for closed fracture with routine healing (principal); N17.9 Acute kidney failure, unspecified; E11.22 Type 2 diabetes mellitus with diabetic chronic kidney disease; I50.22 Chronic systolic (congestive) heart failure; I13.0 Hypertensive heart and chronic kidney disease with heart failure and stage 1 through stage 4 chronic kidney disease, or unspecified chronic kidney disease; D62 Acute posthemorrhagic anemia; E11.65 Type 2 diabetes mellitus with hyperglycemia; E11.40 Type 2 diabetes mellitus with diabetic neuropathy, unspecified; S82.832D Other fracture of upper and lower end of left fibula, subsequent encounter for closed fracture with routine healing; N18.3 Chronic kidney disease, stage 3 (moderate); J44.9 Chronic obstructive pulmonary disease, unspecified; I08.3 Combined rheumatic disorders of mitral, aortic and tricuspid valves; F32.9 Major depressive disorder, single episode, unspecified; M81.0 Age-related osteoporosis without current pathological fracture; K21.9 Gastro-esophageal reflux disease without esophagitis; N18.9 Chronic kidney disease, unspecified; I25.10 Atherosclerotic heart disease of native coronary artery without angina pectoris; I27.2 Other secondary pulmonary hypertension; Z79.4 Long term (current) use of insulin; Z99.81 Dependence on supplemental oxygen; Z95.1 Presence of aortocoronary bypass graft; Z95.3 Presence of xenogenic heart valve; Z11.1 Encounter for screening for respiratory tuberculosis; Z66 Do not resuscitate

== ENCOUNTER 2016-12-09 07:57 | Inpatient (IN) | payer MEDICARE ==
[~2016-12-09] VITALS: Ht 154.9 cm; Wt 63.4 kg
--- NOTE | ~2016-12-09 | ECH ---
Transthoracic Echocardiography Report (TTE) Demographics Patient Name RONDA WANG Date of Study 12/16/2016 Patient Number [id number] Visit Number [id number] Date of 1945 Room Number 306 Accession Number [id number] Gender Female Age 71 year(s) Referring Albretinaphillip Charlie Maria Victoria Desk Officer Malaika Mchugh [facility] Physician Physician Interpreting King Poli Fontanez MD Channel Development Director Physician Supervising Ordering Physician Yusef DAIGLE MD/VLADISLAV Mckeon Nurse Stress Associate Teacher Conclusions Summary Technically fair exam. The estimated left ventricular ejection fraction is 60-65%. Moderate left ventricular hypertrophy. Diastolic assessment reveals normal relaxation. The interventricular septum is flattened which is consistent with right ventricular pressure / and or volume overload. The patient is known to have a 23mm Perimount bioprosthetic aortic valve reversed and placed in the mitral position. Mean gradient across the prosthetic valve is 16mmHg. Mild mitral regurgitation by color Doppler. The aortic valve is mildly stenotic. Peak velocity across the aortic valve is 3m/s with a mean gradient of 20.7mmHg. Flow across the LVOT is increased to 2.6m/s and a mean gradient of 15.6mmHg indicative of LVOT obstruction possibly from the prosthetic mitral valve. There is moderate aortic regurgitation by color Doppler. The aortic regurgitation jet is eccentric. Moderate tricuspid regurgitation by color Doppler. There is moderate pulmonary hypertension. The pulmonary pressure (RVSP) is 53mmHg. Procedure Type of Study TTE procedure:Echo Complete SF. Procedure Date Date: 12/16/2016 Start: 11:16 AM Technical Quality: Fair due to body habitus. Indications:Aortic Insufficiency and Hypotension. Additional Indications:wide pulse pressures, Appropriate Use Criteria: 9 Height: 61 inches Weight: 149 pounds BSA: 1.67 m Rhythm: Within normal limits HR: 70 bpm BP: 138/47 mmHg Allergies - Morphine. M-Mode/2D Measurements LV Diastolic Dimension: 3.23 cm LV Systolic Dimension: 2.53 cm LV Septum Diastolic: 1.34 cm LV PW Diastolic: 1.23 cm AO Root Dimension: 2.13 cm Cardiac Output: 4.07 l/min LA Dimension: 3.5 cm Cardiac Index: 2.44 l/min*m LA volume index: 30 ml/m LVOT: 1.25 cm RV Base: 4.1 cm LVOT VTI: 47.39 cm RV Mid: 2.9 cm LV Stroke volume: 58.13 ml RV Length: 6.4 cm LV Stroke volume index: 34.81 ml/m TAPSE: 1.3 cm Doppler Measurements AV Peak Velocity: 3 m/s MV Peak E-Wave: 2.75 m/s AV Peak Gradient: 36 mmHg MV Peak A-Wave: 1.91 m/s AV Mean Gradient: 20.72 mmHg MV E/A Ratio: 1.44 LVOT Peak Velocity: 2.62 m/s MV P1/2t: 102.6 msec AV Area (Continuity):1.06 cm AV P1/2t: 487.2 msec TR Velocity:3.37 m/s MV Deceleration Time: 323.2 msec TR Gradient:45.52 mmHg MV Area (PHT): 2.15 cm Estimated RAP:8 mmHg PV Peak Velocity: 1.08 m/s Estimated RVSP: 54 mmHg PV Peak Gradient: 4.7 mmHg Estimated PASP: 53.52 mmHg RA Area: 10.63 cm Findings Left Ventricle Normal left ventricle size and function. Moderate left ventricular hypertrophy. Diastolic assessment reveals normal relaxation. The interventricular septum is flattened which is consistent with right ventricular pressure / and or volume overload. Right Ventricle Normal right ventricle structure and function. Left Atrium Normal left atrial size. Right Atrium Normal right atrial size. Mitral Valve The patient is known to have a 23mm Perimount bioprosthetic aortic valve reversed and placed in the mitral position. Mean gradient across the prosthetic valve is 16mmHg. Mild mitral regurgitation by color Doppler. Aortic Valve The aortic valve is mildly stenotic. Peak velocity across the aortic valve is 3m/s with a mean gradient of 20.7mmHg. Flow across the LVOT is increased to 2.6m/s and a mean gradient of 15.6mmHg indicative of LVOT obstruction possibly from the prosthetic mitral valve. There is moderate aortic regurgitation by color Doppler. The aortic regurgitation jet is eccentric. Tricuspid Valve Normal appearing tricuspid valve. Moderate tricuspid regurgitation by color Doppler. There is moderate pulmonary hypertension. The pulmonary pressure (RVSP) is 53mmHg. Pulmonic Valve The pulmonic valve is not well visualized. Pericardial Effusion No evidence of pericardial effusion. Miscellaneous Visualized portions of the aortic root and ascending aorta appear normal in size. Pleural Effusion No evidence of pleural effusion. Signature
--- NOTE | 2016-12-09 16:41 | ER ---
ADMIT: 12/09/2016 RM/LOC: 306 [facility] MR#: [id number] [address] [address] [place] [address] Emergency Room Report SEX: F AGE: 71 : 1945 DATE: 12/09/2016 ADDENDUM: A 71-year-old, white female coming in from skilled care with respiratory distress. She has multiple comorbidities including cardiac disease, chronic anemia, hypertension, COPD, seizure disorder, kidney failure, aortic insufficiency on valve. She has also had history of ovarian cancer, bypass, and mitral valve replacement. We put her on BiPAP because she was retaining CO2 at 83. Her white count was 12,000, her hemoglobin was 7. Potassium was 5.5, creatinine was 2.6. BNP obviously up to 1000. Chest x- ray, bilateral infiltrates versus underlying pulmonary edema, congestive heart failure. EKG is tachycardic. DIAGNOSES: 1. Pulmonary edema of heart failure. 2. Respiratory failure, acute with hypoxia. 3. Hypotension. We are calling her SIRS sepsis because of the possible underlying pneumonia. We will call that pneumonia since it is read out by radiologist. 4. Hypoxia. 5. Severe chronic anemia. 6. CO2 retention with impending respiratory failure. At this time, she is DNR/DNI; however, we did put BiPAP on her, treated her with antibiotics. We initially gave her some Lasix to see if that would both help her failure as she has had no urine output since she has been here. Also, started her on dopamine, we will have to probably switch that Levophed depending on the aggressiveness of that the family wants. I spoke with Dr. Roa and also with Dr. Givens and notified for his consult. CONDITION ON DISCHARGE: Critical. Tommie Matos MD/ petey JOB #: [id number] CC: Charlie Roa MD, Attending Physician Charlie Roa MD, Family Physician
--- NOTE | 2016-12-12 14:56 | HP ---
ADMIT: 12/09/2016 RM/LOC: 306 [facility] MR#: [id number] [address] [address] [place] [address] History and Physical SEX: F AGE: 71 : 1945 DATE OF SERVICE: CONSULTANTS: 1. Reed Givens MD, Critical Care. 2. Regino Ayon MD, [facility] Cardiology. 3. Stanislav Bahena MD, Nephrology. CHIEF COMPLAINT: 1. Respiratory failure. 2. Hypotension. 3. Hypoxia. CLINICAL HISTORY: The patient is a chronically ill, 71-year-old white female, who is transferred on an emergent basis from the [facility] on the morning of 12/09/2016. The patient had been rehabbing at the jail unit for the past 6 days after being dismissed from the hospital on 12/03/2016. The patient had been admitted to [facility] on the morning of 11/26/2016 after falling at home and injuring her left leg. She sustained a fracture of her distal tibia and fibula above the hardware that was still in her ankle from a previous fracture of that left ankle a couple of years ago. The patient was hospitalized here at [facility] from 11/26/2016 through 12/03/2016. The patient had open reduction and internal fixation of her fractured tibia and fibula on 11/27/2016, and fortunately did well postoperatively. She was transferred to the jail unit because she is nonweightbearing on her left lower extremity and because of her marked debility due to her comorbid medical conditions. The patient has a history of significant coronary artery disease, valvular heart disease, chronic combined systolic and diastolic heart failure. She also has history of rhythm disturbance with past history of junctional bradycardia. She also has a long- standing type 2 diabetes, insulin dependent with multiple complications including diabetic nephropathy and diabetic neuropathy. The patient as noted had been at [facility] since 12/03/2016. On 12/07/2016, she was noted to have some increased upper respiratory congestion and some URI type symptoms. A chest x-ray was obtained at the [facility] at that time, which showed no evidence of pneumonia and no worsening of her congestive heart failure. A respiratory viral screen or panel was performed, which was negative for influenza and other significant pathogens. She was started on oral Keflex. However, over the past 2 days, she has had increasing congestion, and on the morning of 12/09/2016, it was found by the jail unit staff to be hypoxic, hypotensive with altered mental status. She was minimally responsive. Her blood pressures were in the range of 80 to 90 systolic. She was having O2 sats into the 70s, and for that reason was transferred on an urgent basis by ambulance from jail unit to the ER. She was evaluated in the ER by Dr. Matos, who felt that she was in acute respiratory failure due to a combination of pneumonia and congestive heart failure. She is a no code, do not resuscitate, and she does not want to be on a ventilator, however, we did initiate BiPAP therapy in the ER which helped stabilize her O2 sats. Her blood pressures in the ER were quite low with readings as low as 62/43. She was started on a dopamine drip and given a fluid bolus in the ER in hopes of ADMIT: 12/09/2016 RM/LOC: 306 [facility] MR#: [id number] [address] [place], [place] [id number] [place] [address] History and Physical SEX: F AGE: 71 : 1945 stabilizing her blood pressure. Once she was able to be stabilized in the ER, we transported her to the ICU for urgent Critical Care consult as well as Cardiology consult. Her chest x-ray in the ER appeared to have significant infiltrates particularly in the left base consistent with pneumonia as well as congestive failure. She is admitted to the ICU with acute respiratory failure with hypoxia due to the combined pneumonia and congestive heart failure. PAST MEDICAL HISTORY: For further past medical history, I refer you to her history and physical from 11/26/2016, which documents her past medical history. The patient is obtunded and unable to respond to any questions while seen in the ER. I did see her in the ER along with Dr. Matos prior to her admission to the ICU. Her chronic medical problems are noted to include: 1. Multivessel coronary artery disease, status post three-vessel CABG in January of 2015. 2. Severe mitral regurgitation, status post mitral valve replacement in January of 2015 with bioprosthetic valve. 3. Valvular heart disease with moderate aortic insufficiency. 4. Severe pulmonary hypertension with tricuspid regurgitation. 5. Hypertension. 6. Hyperlipidemia. 7. Type 2 diabetes with long-term poor control and multiple microvascular complications. 8. Diabetic peripheral neuropathy. 9. Diabetic nephropathy with chronic kidney disease, stage III. 10.Anemia of chronic disease. 11.Carotid occlusive disease, status post left carotid endarterectomy in December of 2014. 12.Chronic gastroesophageal reflux disease/esophageal reflux. 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 14.Chronic cerebrovascular disease. 15.Osteoporosis. 16.Depressive disorder, not otherwise specified. MEDICATIONS: At this time, at the jail unit included the followin. Protonix 40 mg daily. 2. Gabapentin 300 mg at bedtime. 3. Sertraline 50 mg daily. 4. Simvastatin 80 mg at bedtime. 5. Fenofibrate 160 mg at bedtime. 6. Lisinopril 5 mg daily. 7. Coreg 3.125 mg b.i.d. 8. Lasix 40 mg daily. 9. Xanax 0.5 mg every 6 hours p.r.n., anxiety. 10.Lantus 35 units q.a.m. 11.NovoLog sliding scale before meals and at bedtime. ADMIT: 12/09/2016 RM/LOC: 306 [facility] MR#: [id number] [address] [place] [id number] [place] [address] History and Physical SEX: F AGE: 71 : 1945 ALLERGIES: SHE IS ALLERGIC TO MORPHINE. SHE HAS A SIGNIFICANT HISTORY OF ITCHING SECONDARY TO MORPHINE. SOCIAL HISTORY: Please see previous dictation from 11/26/2016. The patient unable to respond to any questions at this time. FAMILY HISTORY: Please see previous dictation from 11/26/2016. The patient unable to respond to any questions at this time. REVIEW OF SYSTEMS: Please see previous dictation from 11/26/2016. The patient unable to respond to any questions at this time. PHYSICAL EXAMINATION: VITAL SIGNS: Her temp was 95.3 pulse 78, respirations 21, blood pressure when she initially got to the ICU was 93/31, this is with dopamine running, Levophed is yet to be started. Blood pressures in the ER were as low as 62/43. Her O2 saturation with BiPAP with high-flow oxygen is 98%. GENERAL: The patient is a 71-year-old female, who appears significantly older than her stated age. She is minimally responsive. She will open her eyes when I speak to her, but she is unable to respond, very lethargic. HEENT: Reveals her ears to be clear. Hearing is diminished. Pupils are equal and reactive. Sclerae nonicteric. She has some minimal conjunctival injection and inflammation. Unable to assess vision or hearing at this time. Nose and throat are noninflamed. Her oral mucous membranes are dry. No oral lesions. NECK: Noted to have bilateral neck vein distention. She has bilateral carotid bruits. No significant cervical adenopathy. No nuchal rigidity. LUNGS: Noted to be very diminished. She is clear anteriorly. She has bilateral rales and rhonchi in both bases and very diminished in the bases as well. HEART: Noted to have a regular rhythm. She has a holosystolic murmur heard along the left sternal border. She also has a grade 2/6 diastolic murmur heard over the aortic region. ABDOMEN: Soft, nondistended. She does not have a pain response when I palpate her abdomen. I cannot appreciate any masses or significant hernias. EXTREMITIES: Her left lower extremity is in a boot immobilizer. She does have some peripheral edema with some puffiness of her face and hands. She has 1+ pedal and ankle edema on the right. I cannot appreciate any calf tenderness or signs of thrombophlebitis. NEUROLOGICAL: Unable to assess since she is minimally responsive. She does seem to be moving all extremities. I cannot appreciate any new focal deficits. LABORATORY DATA: Her pre-admission laboratory work done in the ER, showed her white count to be elevated at 12,000, hemoglobin was low at 7 with hematocrit of 24.2. Lactic acid was elevated at 4.7. Her BUN was elevated at 89, creatinine 2.6. Blood sugar was 75. Sodium was 139, potassium 5.5. Her blood gases showed a pH of 7.15, pCO2 of 91, PO2 of 228 this is with her BiPAP on. ASSESSMENT: At the time of admission: ADMIT: 12/09/2016 RM/LOC: 306 [facility] MR#: [id number] [address] [place] [id number] [address] [place] [address] History and Physical SEX: F AGE: 71 : 1945 1. Acute respiratory failure with hypoxia and hypercapnia. 2. Bilateral pneumonia, suspected acute healthcare-associated pneumonia. 3. Acute on chronic combined systolic and diastolic heart failure. 4. Sepsis with septic shock. 5. Atherosclerotic coronary vascular disease. 6. Valvular heart disease. 7. Severe pulmonary hypertension. 8. Acute on chronic renal failure. 9. Type 2 diabetes, insulin-dependent with history of long-term poor control. 10.Aortic insufficiency. 11.Anemia of chronic disease. 12.Diabetic peripheral vascular disease. 13.Diabetic neuropathy. 14.Chronic obstructive pulmonary disease. 15.Hypertension. 16.Chronic cerebrovascular disease. 17.Carotid occlusive disease. 18.Marked debility due to her multiple comorbid medical conditions. 19.Status post recent open reduction internal fixation fracture left distal tibia and fibula. PLAN: Plan is to admit the patient to the ICU. Her condition is critical. I have discussed with the family that this could be a life ending event with her pneumonia and congestive failure causing acute respiratory failure. The patient has been admitted to [facility] with plans for both urgent Critical Care consult as well as urgent Cardiology an urgent Nephrology consult. I have talked with Dr. Givens, Dr. Regino Ayon, and Dr. Bahena about the patient. The patient is a no code, do not resuscitate, but we are going to aggressively treat for her pneumonia and heart failure and sepsis. However, the patient as well as her family does not want to be intubated. Dr. Bahena is also going to discuss with him possibility of needing dialysis if her renal failure worsen. CONDITION ON ADMISSION: Critical. PROGNOSIS: Was felt to be extremely poor. HISTORY AND PHYSICAL EXAMINATION FROM ADMISSION OF 11/26/2016 CHIEF COMPLAINT: Pain in the left lower leg and ankle, left leg injury due to fall at home on the morning of 11/26/2016. CLINICAL HISTORY: The patient is a 71-year-old white female, admitted to [facility] after being seen in the ER complaining of left lower leg pain and left ankle pain. She fell at home on the morning of 11/26/2016 while getting ready to go to Dr. Bahena's office for an iron infusion/Venofer for her anemia of chronic disease. The patient does not really recall how she fell. She remembers getting lightheaded or weak while standing in her ADMIT: 12/09/2016 RM/LOC: 306 [facility] MR#: [id number] [address] [phone] [facility] Micheal [address] [place], [place] [id number] History and Physical SEX: F AGE: 71 : 1945 bathroom. She was found by her son lying on the floor, unable to get up, unable to bear weight on her left leg. She was confused and disoriented at that time. She was brought to the ER, where she was evaluated. X-rays done in the ER show fixation hardware from previous open reduction and internal fixation of a fractured left ankle with a new spiral type fracture of the distal tibia as well as fracture of the distal fibula above the level of her old fusion hardware. The patient was seen in consult by Orthopedics, they have asked us to admit her and they will see her in consultation. She will need to go to the OR for open reduction and internal fixation of her left distal tibia and fibula fracture. Dr. Licea has seen her in consultation and planned to take her to the OR on 11/27/2016. The patient unfortunately has a significant surgical risk because of her multiple health problems. She has significant coronary artery disease, valvular heart disease, chronic congestive failure as well as chronic kidney disease, long-standing poorly- controlled diabetes with diabetic peripheral neuropathy and diabetic peripheral vascular disease. As noted, admitted at this time because of her fracture. Based on the description of her fall, it sounds like she probably got hypoglycemic. She notes that she was diaphoretic and clammy before she had the syncopal or near syncopal episode. She does have a history of cardiac dysrhythmia, but EKG in the ER showed her to be in a sinus bradycardia with no significant ST-T wave changes. She is admitted at this time with plans for cardiac preoperative consultation prior to planned surgery on 11/27/2016. PAST MEDICAL HISTORY: The patient has had numerous recent hospitalizations. She was last hospitalized in May of 2016. At that time, she had fallen and suffered a cervical spine fracture of C1. She had been hospitalized in March of 2016 with acute on chronic renal failure with hyperkalemia and cardiac dysrhythmia. She was hospitalized in January of 2016 with weakness, falls, and orthostatics symptoms. She was hospitalized in November of 2015 with an acute decompensation of her chronic diastolic heart failure. In October of 2015, she was hospitalized with acute renal failure, hyperkalemia, and a bradyarrhythmia. She was hospitalized in June of 2015 with a syncopal episode and closed head injury. In December of 2014, she was hospitalized in [place] and underwent a left carotid endarterectomy on 01/01/2015. She then had a three-vessel CABG at the [facility] in [place] in January of 2015. She cannot remember the dates of all these hospitalizations, these are obtained from old records. Her past medical history includes the followin. Multivessel coronary artery disease, status post three-vessel CABG in January of 2015. 2. Severe mitral regurgitation, status post mitral valve replacement in January of 2015 with bioprosthetic valve. 3. Valvular heart disease with moderate aortic insufficiency. 4. Severe pulmonary hypertension with tricuspid regurgitation. 5. Hypertension. 6. Hyperlipidemia. 7. Type 2 diabetes with long-term poor control and multiple microvascular complications. 8. Diabetic peripheral neuropathy. ADMIT: 12/09/2016 RM/LOC: 306 [facility] MR#: [id number] [address] [place], [place] [address] [place], [place] [address] [place] [address] History and Physical SEX: F AGE: 71 : 1945 9. Diabetic nephropathy with chronic kidney disease, stage 3. 10.Anemia of chronic disease. 11.Carotid occlusive disease, status post left carotid endarterectomy in December of 2014. 12.Chronic GERD/esophageal reflux. 13.Depressive disorder, not otherwise specified. 14.Chronic diastolic heart failure. 15.Chronic cerebrovascular disease. 16.Osteoporosis. PAST SURGICAL HISTORY: Her prior surgical procedures include: 1. CABG with mitral valve replacement on 02/02/2015. 2. Left carotid endarterectomy on 01/01/2015. 3. She has a remote past history of HUGH and BSO years ago. 4. She has history of previous open reduction and internal fixation of trimalleolar fracture of her left ankle in May of 2013. 5. Her C1 cervical fracture was managed non-operatively with halo immobilization of her cervical spine. CURRENT MEDICATIONS: Include the followin. Protonix 40 mg daily. 2. Gabapentin 300 mg at bedtime. 3. Sertraline 50 mg daily. 4. Simvastatin 80 mg at bedtime. 5. Fenofibrate 160 mg at bedtime. 6. Lisinopril 5 mg daily. 7. Coreg 3.125 mg b.i.d. 8. Lasix 40 mg daily. 9. Xanax 0.5 mg every 6 hours as needed for anxiety. 10.Lantus 35 units in the a.m. 11.NovoLog 5 units with each meals plus additional sliding scale. 12.Baby aspirin 81 mg daily. 13.Multivitamin 1 daily. 14.Docusate sodium p.r.n. constipation. ALLERGIES: SHE HAS A HISTORY OF REACTION TO MORPHINE PREVIOUSLY, THIS CAUSED SIGNIFICANT ITCHING. SOCIAL HISTORY: The patient is retired. She has been living independently at home. She is currently in the process of from her , trying to find her own place to live. The patient denies any recent use of tobacco, was a smoker during her younger years. She denies abuse of alcohol or illicit drug use or any misuse of prescription drugs. FAMILY HISTORY: She notes her mother of a heart attack at age 56. Her mother also had similar problems with poorly-controlled diabetes. She notes her father of lung cancer related to his smoking. She has a brother who ADMIT: 12/09/2016 RM/LOC: 306 [facility] MR#: [id number] [address] [place] [phone] [address] [place] [address] History and Physical SEX: F AGE: 71 : 1945 of colon cancer, another brother who in childhood of leukemia. She also has a sister, who has lung cancer. In her family, there is a strong history of diabetes, coronary artery disease, and cancer. REVIEW OF SYSTEMS: Difficult to get an accurate review of systems at this time per the patient. She has been given IV fentanyl in the ER and has received additional pain medications. She is very lethargic and sleepy, she will arouse. It is noted that she has been struggling at home for the last couple of months, she has difficulty caring for herself due to her generalized weakness and debility. She has been at significant fall risk. I have attempted to get her into a custodial previously and she had resisted. CONSTITUTIONAL: She has had no recent fevers, chills, or signs of any ongoing infection. HEENT: She denies any new eye, ear, nose, or throat complaints. No upper respiratory congestion. She denies any difficulty with choking or swallowing. No coughing after eating. PULMONARY: She has been having marked difficulty with shortness of breath. She has had to start using O2 continuously because of her severe pulmonary hypertension. The patient has pulmonary hypertension related to her valvular heart disease. She has marked dyspnea on exertion. No cough. No sputum production. CARDIAC: Extensive cardiac history with known coronary artery disease status post three-vessel CABG, history of chronic diastolic heart failure. She has had no recent angina. She has history of past bradyarrhythmia associated with hyperkalemia. She has been hospitalized twice with significant bradyarrhythmia due to renal failure and hyperkalemia. GASTROINTESTINAL: No nausea, vomiting, or diarrhea. She has had no blood in her stools. GENITOURINARY: The patient has history of significant chronic renal disease. Baseline creatinine typically is running around 1.8 to 2.0. She denies any flank pain or dysuria. No signs of UTI. MUSCULOSKELETAL: Having severe pain in her left lower leg. Unable to bear weight on her left leg at this time due to her injury. NEUROLOGIC: She has no prior history of strokes or TIAs. She has had difficulty with orthostatic hypotension. It has been difficult to manage her fluid status. The patient is followed by [facility] Cardiology and Dr. Bahena as well. 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 ENDOCRINE: She has long-standing type 2 diabetes with long-term poor control. She has been noncompliant with her diabetic management for over 20 years. INTEGUMENT: She has no areas of skin breakdown. She does have significant peripheral vascular disease and marked neuropathy of the lower extremities. PHYSICAL EXAMINATION: VITAL SIGNS: Temp is 97.8, pulse is 60, respirations 18, blood pressure 132/48, O2 saturation 98%. Current weight 157 pounds. GENERAL: The patient is a very frail, debilitated 71-year-old female, who looks significantly older than her stated age. She is a little lethargic and sleepy due to her pain medications. ADMIT: 12/09/2016 RM/LOC: 306 [facility] MR#: [id number] [address] [place] [phone] [place] [address] History and Physical SEX: F AGE: 71 : 1945 HEENT: Her ears are clear. Hearing is somewhat diminished. Pupils are equal and reactive. Sclerae nonicteric. She has some mild conjunctival injection and inflammation. Vision appears to be grossly intact. Her nose and throat are noninflamed. Oral mucosa is moist. No oral lesions. NECK: Noted to have bilateral carotid bruits. I cannot appreciate any significant neck vein distention. No cervical adenopathy. No neck masses. LUNGS: Noted to be clear anteriorly, diminished in the bases. I do not hear any rhonchi, rales, or wheezes. HEART: Noted to have a regular rhythm. There is a holosystolic murmur heard best along the left sternal border, grade 2/6. No evidence of failure on today's exam. ABDOMEN: Soft, nontender. Obese. Protuberant, but not distended. Bowel sounds are normoactive. No CVA or suprapubic tenderness. EXTREMITIES: Her left lower extremity is in a brace and immobilizer for her ankle and lower leg. She is splinted. She has marked pain on palpation of her left lower leg pain, pain over the lateral aspect of her ankle. She has marked changes of diabetic peripheral vascular disease with essentially absent pedal pulses. Skin is very fragile. She has no sensation to light touch or monofilament testing in either lower extremity up to the level of mid calf. The patient is unable to stand or walk at this time. NEUROLOGICAL: I can see no other new focal deficits, but she is sedated. When aroused, she is alert and oriented and is able to answer most of the questions appropriately. LABORATORY AND X-RAY DATA: Her pre-admission laboratory work revealed her white count to be 4600, hemoglobin is 8.9, platelets 149,000. She has chronic anemia due to her chronic kidney disease. Sodium was 141, potassium 5.5. Blood sugar was 92. Creatinine is 2.1. Cardiac enzymes were normal. TSH is elevated. EKG shows a sinus bradycardia with no significant ST-T wave changes. ASSESSMENT AT THE TIME OF ADMISSION: 1. Fall at home on the morning of 11/26/2016. 2. Acute displaced fracture of the distal tibia and fibula of her left lower extremity. 3. Osteoporosis. 4. Atherosclerotic coronary vascular disease, status post three-vessel CABG in January of 2015. 5. Chronic diastolic heart failure. 6. Prior mitral valve replacement in 2014. 7. Severe tricuspid regurgitation with secondary pulmonary hypertension. 8. Aortic insufficiency. 9. Chronic kidney disease, stage 3. 10.Anemia of chronic disease. 11.Type 2 diabetes, insulin-dependent, with long-term poor control. 12.Diabetic peripheral vascular disease. 13.Diabetic neuropathy. 14.Chronic obstructive pulmonary disease. ADMIT: 12/09/2016 RM/LOC: 306 [facility] MR#: [id number] [address] [address] [address] [place] [address] History and Physical SEX: F AGE: 71 : 1945 15.Hypertension. 16.Chronic cerebrovascular disease. 17.Marked debility due to her multiple comorbid medical conditions. PLAN: Plan is to admit the patient. Orthopedics has been consulted, they planned to take her to the OR on 11/27/2016. I will ask [facility] Cardiology to see in consultation for preoperative cardiac clearance. We will also ask Dr. Bahena to be involved since he manages her chronic kidney disease and can help manage her fluid status postoperatively. She has a significant surgical risk. We have discussed the risks and benefits of surgery with her and her family. We really have no option other than to proceed with ORIF. The patient will then need long-term custodial care once she recovers from her surgical procedure. Charlie Roa MD/ petey JOB #: [id number] and [id number] CC: Charlie Roa, Attending Physician Charlie Roa, Family Physician MD Regino Montano MD Amarinder Garcha, MD
--- NOTE | 2016-12-14 09:46 | CO ---
ADMIT: 12/09/2016 RM/LOC: 306 [facility] MR#: [id number] [address] [address] KATHLEENRONDA [place] [address] Consultation SEX: F AGE: 71 : 1945 DATE OF CONSULTATION: 12/09/2016 ATTENDING PHYSICIAN: Charlie Roa CONSULTING PHYSICIAN: Stanislav Bahena MD REASON FOR CONSULTATION: Acute kidney injury and chronic kidney disease stage 3 and hyperkalemia. HISTORY OF PRESENT ILLNESS: The patient is a 71-year-old female, who is well known to me. She has a history of chronic kidney disease stage 3 with a creatinine of around 1.8. She was recently discharged from the hospital at the end of last week with creatinine that was close to her baseline. [facility]. We had discharged her on furosemide because of her extravascular volume expansion. She was transferred to the emergency room earlier this morning with hypotension and hypoxia. She was subsequently transferred to the ICU with septic shock. She has not made much urine. She has been hypotensive and has been started on a second pressor. She has a Landrum catheter in situ. She is on BiPAP. She is a DNR/DNI. Her family is at her bedside. REVIEW OF SYSTEMS: Unobtainable secondary to the patient's condition. PAST MEDICAL HISTORY: 1. Hypertension. 2. Dyslipidemia. 3. Aortic insufficiency. 4. Right-sided heart failure secondary to mitral valve disease. 5. Coronary artery disease, status post CABG in December 2014. 6. Multiple episodes of acute kidney injury, required renal replacement therapy post CABG in December 2014. 7. Severe MR with mitral valve replacement in December 2014. 8. Type 2 diabetes mellitus. 9. Peripheral neuropathy. 10.Recurrent acute kidney injury. 11.Seizure disorder. 12.Hysterectomy. 13.Anemia. 14.Anxiety. 15.Ovarian cancer, status post ovarian tumor removal. 16.Depression. 17.Left Bankart fracture, twice. 18.Left carotid endarterectomy. ALLERGIES: TO MORPHINE. MEDICATIONS: Reviewed in the chart. FAMILY HISTORY: One of her cousins had chronic kidney disease and received a ADMIT: 12/09/2016 RM/LOC: 306 [facility] MR#: [id number] [address] [address] [address] [place] [address] Consultation SEX: F AGE: 71 : 1945 kidney transplant. SOCIAL HISTORY: She was living at home until recently,was currently at [facility]. Lifelong nonsmoker. PHYSICAL EXAMINATION: VITAL SIGNS: Blood pressure 120/27 on two pressors, heart rate is 102, she is on BiPAP. GENERAL: She is ill-appearing and on BiPAP. HEENT: Pale conjunctiva. CVS: Systolic murmur. ABDOMEN: Soft and nontender. EXTREMITIES: Bilateral upper extremity and lower extremity edema. NEUROLOGIC: She opens eyes in response to verbal stimulus. LABORATORY DATA: Reviewed. BMP with sodium 139, potassium 5.5, CO2 of 31, creatinine 2.6. Lactate 4.7. Hemoglobin 7.0. Her pH was 7.156 with pCO2 of 91.2. Her chest x-ray with left lower lobe infiltrate and pulmonary edema as well. ASSESSMENT AND PLAN: 1. Acute kidney injury and chronic kidney disease stage 3. 2. Septic shock. 3. Hyperkalemia. 4. Respiratory/lactic acidosis. She is critically ill. She is on pressor support as well as BiPAP. She is a DNR/DNI. In discussions with the family, she did not want renal replacement therapy under any circumstance. This has been recently discussed amongst her family as well. I agree with IV antibiotics, pressors, and fluids. For the time being, we will have her switch her to bicarbonate-containing fluids, considering her hyperkalemia and metabolic acidosis. I will monitor her labs after these interventions. I will continue to provide care consistent with overall goals of care. She remains critically ill at this time and the family understands. Thank you for this consultation and allowing me the opportunity to participate in this patient's care. Please do not hesitate to contact me with any questions. Stanislav Bahena MD/ petey JOB #: [id number] CC: Charlie Roa, Attending Physician Charlie Roa, Family Physician
--- NOTE | 2016-12-31 08:44 | CO ---
ADMIT: 12/09/2016 RM/LOC: 306 [facility] MR#: [id number] [address] [address] RONDA WANGBANNER [facility] [place] [address] Consultation SEX: F AGE: 71 : 1945 DATE OF CONSULTATION: 12/09/2016 ATTENDING PHYSICIAN: Charlie Roa CONSULTING PHYSICIAN: Lazaro Givens MD REASON FOR CONSULTATION: Consultation requested for hypoxemia, respiratory failure, and hypotension. HISTORY OF PRESENT ILLNESS: Ronda is a 71-year-old female, well known to the Medical Facility, who recently had a left leg fracture and was able to recover from that and was at the nursing facility. Over the last few days, developed a low-grade fever, cough. The chest x-ray did not show pneumonia. Influenza rapid studies were negative. Subsequently started on some oral antibiotics to cover for possible bronchitis. Apparently in the evening or this morning, vomited, aspirated and then developed some mental status changes. The family is present at the bedside. In the emergency room, she was started on BiPAP with a severe arterial blood gas analysis showed pH 7.15, pCO2 of 91. Her lactate was 4.7. She did develop some bradycardia and hypotension, subsequently was given some atropine. On dopamine of 20, her blood pressure and heart rate are relatively normalized. Her sats are 98%. We have adjusted her BiPAP settings and now her volumes are around 400-500. She cannot give me any history but arouses to voice. Her family is present. PAST MEDICAL HISTORY: Reviewed, is quite extensive. MEDICATIONS: From the nursing facility are also reviewed. REVIEW OF SYSTEMS: Not obtainable. PHYSICAL EXAMINATION: VITAL SIGNS: Temp 99, pulse 100, respirations 30, blood pressure 100/60. HEENT: Arouses to voice. Pupils are responsive. BiPAP mask in place. NECK: Positive JVD. LUNGS: Bilateral rales and rhonchi. ABDOMEN: Soft. Bowel sounds positive, nontender, and nondistended. No organosplenomegaly. LABORATORY DATA: Testing arterial blood gas; pH 7.15, pCO2 of 91, PO2 of 228. Respiratory viral panel done recently was negative. Sodium 139, potassium 5.5, BUN 89, creatinine 2.6. Lactic acid as noted at 4.7. Blood cultures are pending. INR is 1.29. White blood cell count 12,000, hemoglobin 7, platelets are 293. Previous white blood cell count 4400, hemoglobin 8.1. IMPRESSION: 1. Acute hypoxemic and hypercapnic respiratory failure, most likely secondary to acute healthcare-associated pneumonia. There could be a component of fluid overload. However, she is acting more like a sepsis patient with pneumonic process with elevated lactic acid, hypoxemia, ADMIT: 12/09/2016 RM/LOC: 306 [facility] MR#: [id number] [address] [place] [address] Consultation SEX: F AGE: 71 : 1945 elevated white count, and possible aspiration from vomiting. Antibiotics will be initiated, consisting of Zosyn and vancomycin. Noninvasive ventilation with BiPAP will be continued. Repeat blood gases in 1 hour. 2. She has complex past medical history including severe cardiac disease with prior mitral valve replacement and secondary pulmonary hypertension which is severe, aortic insufficiency, and tricuspid regurgitation. 3. She has chronic kidney disease. 4. She has recent left leg fracture, on DVT prophylaxis. 5. She has sepsis with shock, currently on dopamine, Levophed as ordered. MAP will be kept greater than 65. Today, I had a discussion with the family who I met for the 1st time and they confirmed that she is a DNR/DNI but they want to continue aggressive measures. If by some chance she deteriorates and does not respond to what we are doing, then they would consider moving towards comfort cares. Discussed with Dr. Roa and Cardiology as well. Thirty five minutes of critical care time. Thank you for having me see her. Lazaro Givens MD/ petey JOB #: [id number] CC: Charlie Roa, Attending Physician Charlie Roa, Family Physician
--- NOTE | 2017-01-22 12:36 | DS ---
ADMIT: 12/09/2016 RM/LOC: [address] [facility] MR#: [id number] [address] [address] [place] [address] General Discharge Summary SEX: F AGE: 71 : 1945 ADMISSION DATE: 12/09/2016 DISCHARGE DATE: 12/17/2016 ADMITTING DIAGNOSIS: As per history and physical. FINAL DIAGNOSES: 1. Sepsis. 2. Pneumonia. 3. Severe sepsis with septic shock. 4. Acute on chronic combined systolic diastolic congestive heart failure. 5. Acute kidney failure. 6. Acute respiratory failure with hypercapnia. 7. Acute respiratory failure with hypoxia. 8. Type 2 diabetes with diabetic chronic kidney disease. 9. Acute post hemorrhagic anemia. 10.Chronic obstructive pulmonary disease. 11.Melena. 12.Chronic kidney disease, stage 3. 13.Diabetic polyneuropathy. 14.Atherosclerotic coronary vascular disease. 15.Anemia of chronic disease. 16.Chronic anxiety disorder. 17.Osteoporosis with recent fracture. 18.Hyperlipidemia. 19.Valvular heart disease with aortic insufficiency, mitral stenosis, and tricuspid insufficiency. 20.Major depressive disorder. 21.Severe pulmonary hypertension. 22.Status post previous mitral valve replacement. PROCEDURES: Assistance with respiratory ventilation with BiPAP on 12/09/2016 and transfusion with packed cells on 12/11/2016. CLINICAL HISTORY: The patient is a chronically ill, 71-year-old white female, who was transferred on emergent basis from the longterm unit at [facility] on the morning of 12/09/2016. The patient had been rehabbing at the longterm unit following a recent left tibia fibula fracture. On the morning of transfer, the patient was acutely dyspneic, hypotensive, and hypoxic and was transferred to the ER for evaluation. She was found to have what was felt to be sepsis most likely due to pneumonia as well as an exacerbation of her acute on chronic congestive heart failure. In view of her severe respiratory distress, it was felt best to admit to the ICU for urgent Critical Care as well as urgent Nephrology consultation. For further details of her clinical history as well as past medical history and pertinent findings on physical exam, please see dictated history and physical. Also, see dictated critical care consult from Dr. Givens and dictated Nephrology consult from Dr. Bahena. LABORATORY/X-RAY SUMMARY FROM THIS ADMISSION: for complete details, please ADMIT: 12/09/2016 RM/LOC: 403 [facility] MR#: [id number] [address] [address] [place] [address] General Discharge Summary SEX: F AGE: 71 : 1945 see cumulative summary included in her chart. Brief synopsis of lab; on admission, the patient's white count was 12,000, hemoglobin was 7 with hematocrit of 24.2. CBCs were done on essentially a daily basis. Her white counts did trend down. At discharge, her white count was 6,300, hemoglobin 9.8, and hematocrit 32.5. The patient's hemoglobin dropped to a low of 5.9 on 12/11/2016. She was then transfused with 2 units of packed cells. Her protime on admission was 13.5 with an INR of 1.29. Urinalysis on admission was clear. Stools when tested were Hematest positive for blood. Chemistry studies were monitored serially throughout the hospitalization. Sometimes, BMPs more than once a day because of her acute renal failure and electrolyte disturbance. On admission, her sodium was 139, potassium 5.5, BUN was 89 with a creatinine of 2.6. Her creatinine slowly improved over the course of her hospitalization. Electrolytes remained stable. At discharge, her sodium was 143, potassium 3.5, BUN 37, and creatinine 1.2. Fingerstick blood sugars were monitored q.i.d. because of her diabetes. She was on sliding scale throughout the hospitalization. Blood gases were monitored serially because of her acute respiratory distress. On admission, her pH was 7.15, her pCO2 was 91, and pCO2 was 83. On her last set of blood gases done during this hospitalization, pH was 7.44, pCO2 of 52, and PO2 was high greater than 100. Blood cultures drawn during this hospitalization showed no growth. Stools were negative for C. difficile. Blood type was noted to be O positive. She was transfused with 2 units on 12/11/2016. X-ray studies included a chest x-ray in the ER, which they felt showed bilateral pneumonia and changes of congestive heart failure. Serial chest x-rays continued to show evidence of pulmonary edema and bilateral lower lobe infiltrates. Over the course of the hospitalization, there was slow improvement and the appearance of her chest x-ray with resolving pulmonary edema and better aeration of the lower lobes. A venous Doppler done on her lower extremity showed no evidence of DVT. Her echocardiogram done during this hospitalization showed an EF of 60% to 65%, moderate LVH, mild mitral regurgitation, mild aortic stenosis, significant aortic regurgitation, moderate tricuspid regurgitation, and severe pulmonary hypertension. EKGs done during this hospitalization showed junctional rhythm or sinus bradycardia. HOSPITAL COURSE: The patient was admitted, which was felt to be acute respiratory failure due to a combination of pneumonia and congestive heart failure. Urgent Critical Care consult was obtained. The patient was placed on BiPAP in the ER and required BiPAP support. Fortunately never required intubation. We also obtain urgent Cardiology consult to help with management of her congestive heart failure. We were able to stabilize her respiratory status with BiPAP. She was cautiously diuresed because of her chronic kidney failure. We treated for her pneumonia with multiple IV antibiotics. Hemoglobin did drop during this hospitalization at 5.9, and it was felt that she had a limited GI bleed precipitated by her DVT prophylaxis and chronic gastritis. DVT prophylaxis was discontinued, and there were no further signs of bleeding. She responded to the aggressive antibiotic therapy and conscious diuresis with a continued improvement in her respiratory status. Her overall condition slowly improved, but she remained extremely debilitated due to her ADMIT: 12/09/2016 RM/LOC: 403 [facility] MR#: [id number] [address] [facility] [address] [place] [address] [place] [address] General Discharge Summary SEX: F AGE: 71 : 1945 multiple comorbid medical conditions. She was in the ICU from 12/09/2016 through 12/13/2016 she was then transferred to PCU status and we continued to treat for her pneumonia and congestive failure with no further complications. Ultimately, her respiratory status was stable enough, and we felt that she is ready to transfer back to a longterm unit. As noted, throughout the course of the hospitalization, the critical care team including Dr. Givens and Dr. Bahena and [facility] Cardiology assisted and helped manage all of her medical issues. She was transferred to [facility] Nursing unit for continued rehab with PT, OT, and Speech Therapy on 12/17/2016, with planned followup in our office in 5 to 7 days. Also, arrangements were made for followup with both Cardiology and Nephrology. Her acute respiratory failure was resolved. She was stable on continuous O2 at 2 L/minute. As far as her respiratory status, she was felt to be in a dry state as far as her fluid balance. At discharge, she was dismissed on the followin. Carafate 1 g t.i.d. 2. Coreg 3.125 mg b.i.d. 3. Prednisone tapering dose. 4. Potassium 20 mEq daily. 5. Lasix 80 mg b.i.d. 6. Neurontin 300 mg at bedtime. 7. Norvasc 5 mg daily. 8. Protonix 40 mg daily. 9. Zoloft 50 mg daily. 10.DuoNeb via twinjet nebulizer t.i.d. 11.Lantus 14 units at bedtime. 12.Sliding scale NovoLog t.i.d. with meals. 13.Ativan 0.5 mg q.6 hours p.r.n. anxiety. 14.Tylenol 650 mg q.4 hours p.r.n. minor discomfort. 15.Nitrostat sublingual p.r.n. chest pain. 16.Augmentin 875 mg b.i.d. for 7 days. She was to have lab work at the long-term in 4 days to include CBC and a BMP. She is noted to be a no code, do not resuscitate. CONDITION AT DISCHARGE: Stable. PROGNOSIS: Extremely poor in view of the multiplicity and complexity of her medical problems. Charlie Roa MD/ petey JOB #: [id number] CC: Charlie Roa MD, Attending Physician Charlie Roa MD, Family Physician
[2017-01-27] MEDS ORDERED: TYLENOL DPS325 MG PO (09:21)
[2017-01-27] MEDS ORDERED: XANAX DPS0.5 MG PO (09:21)
[2017-01-27] MEDS ORDERED: KLOR-CON M2020 ME1 PO (09:22)
[2017-01-27] MEDS ORDERED: NITROSTAT0.4 MG SL (09:23)
[2017-01-27] MEDS ORDERED: LASIX40 M1 PO (09:24)
[2017-01-27] MEDS ORDERED: LANTUS100 UNITS/ SQ (09:24)
[2017-01-27] MEDS ORDERED: DUONEB DPS3 ML IH (09:25)
[2017-01-27] MEDS ORDERED: LIPITOR40 MG PO (09:25)
[2017-01-27] MEDS ORDERED: COLACE-DPS100 MG PO (09:26)
[2017-01-27] MEDS ORDERED: NOVOLOG100 UNIT/2 SQ (09:26)
[2017-01-27] MEDS ORDERED: PEPCID DPS20 MG PO (09:26)
[2017-01-27] MEDS ORDERED: MAALOX DPS30 ML PO (09:27)
[2017-01-27] MEDS ORDERED: GLUTOSE 1537.5 GM PO (09:27)
[2017-01-27] MEDS ORDERED: GLUCAGON HCL1 MG IM (09:27)
== END 2016-12-17 13:11 | DRG 871 ==
LOC: ER 07:57 → 3ICU 09:00 → 4PCU 12-16 13:00
PROVIDERS: ADMIT Family Medicine
PROC: 5A09457 Assistance with Respiratory Ventilation, 24-96 Consecutive Hours, Continuous Positive Airway Pressure (ICD-10-PCS; principal; 2016-12-09)
PROC: 30233N1 Transfusion of Nonautologous Red Blood Cells into Peripheral Vein, Percutaneous Approach (ICD-10-PCS; 2016-12-11)
DX: A41.9 Sepsis, unspecified organism (principal); J18.9 Pneumonia, unspecified organism; R65.21 Severe sepsis with septic shock; I50.43 Acute on chronic combined systolic (congestive) and diastolic (congestive) heart failure; N17.9 Acute kidney failure, unspecified; J96.02 Acute respiratory failure with hypercapnia; J96.01 Acute respiratory failure with hypoxia; E11.22 Type 2 diabetes mellitus with diabetic chronic kidney disease; I13.0 Hypertensive heart and chronic kidney disease with heart failure and stage 1 through stage 4 chronic kidney disease, or unspecified chronic kidney disease; D62 Acute posthemorrhagic anemia; J44.0 Chronic obstructive pulmonary disease with (acute) lower respiratory infection; K92.1 Melena; N18.3 Chronic kidney disease, stage 3 (moderate); E11.42 Type 2 diabetes mellitus with diabetic polyneuropathy; I25.10 Atherosclerotic heart disease of native coronary artery without angina pectoris; E11.65 Type 2 diabetes mellitus with hyperglycemia; D63.8 Anemia in other chronic diseases classified elsewhere; E87.5 Hyperkalemia; F41.9 Anxiety disorder, unspecified; M81.0 Age-related osteoporosis without current pathological fracture; E78.5 Hyperlipidemia, unspecified; I08.2 Rheumatic disorders of both aortic and tricuspid valves; E87.6 Hypokalemia; F32.9 Major depressive disorder, single episode, unspecified; I27.2 Other secondary pulmonary hypertension; G40.909 Epilepsy, unspecified, not intractable, without status epilepticus; Z85.43 Personal history of malignant neoplasm of ovary; Z95.1 Presence of aortocoronary bypass graft; Z95.2 Presence of prosthetic heart valve; Z66 Do not resuscitate; S82.302D Unspecified fracture of lower end of left tibia, subsequent encounter for closed fracture with routine healing; S82.832D Other fracture of upper and lower end of left fibula, subsequent encounter for closed fracture with routine healing

== ENCOUNTER 2017-01-01 14:19 | Inpatient (IN) | payer MEDICARE ==
[~2017-01-01] VITALS: Ht 154.9 cm; Wt 63.6 kg
[2017-01-04] MEDS ORDERED: NORVASC5 MG PO (18:53)
[2017-01-04] MEDS ORDERED: COREG3.125 MG PO (18:54)
[2017-01-04] MEDS ORDERED: CARAFATE DPS1 GM PO (18:54)
[2017-01-04] MEDS ORDERED: FENOFIBRATE160 MG PO (18:54)
[2017-01-04] MEDS ORDERED: NEURONTIN DPS300 MG PO (18:54)
[2017-01-04] MEDS ORDERED: LASIX DPS80 MG PO (18:55)
[2017-01-04] MEDS ORDERED: MIRALAX PACKET17 GM PO (18:55)
[2017-01-04] MEDS ORDERED: ZESTRIL DPS5 MG PO (18:55)
[2017-01-04] MEDS ORDERED: NOVOLOG100 UNIT/2 SQ (18:56)
[2017-01-04] MEDS ORDERED: PROTONIX40 MG PO (18:57)
[2017-01-04] MEDS ORDERED: ZOCOR80 MG PO (18:57)
[2017-01-04] MEDS ORDERED: ZOLOFT DPS50 MG PO (18:57)
[2017-01-04] MEDS ORDERED: ULTRAM DPS50 MG PO (18:57)
--- NOTE | 2017-01-05 08:23 | CO ---
ADMIT: 01/01/2017 RM/LOC: 316 [facility] MR#: [id number] [address] [address] [place] [address] Consultation SEX: F AGE: 71 : 1945 DATE OF CONSULTATION: 01/02/2017 ATTENDING PHYSICIAN: Charlie Roa CONSULTING PHYSICIAN: Perez Newby DO REASON FOR CONSULTATION: Renal failure. HISTORY OF PRESENT ILLNESS: I am covering for Dr. Bahena, who has been involved with Ronda's care in the past. She has had chronic kidney disease with episodes of acute kidney injury, superimposed on prior occasions. She presents with a similar event; however at this time, she is fluid overloaded. She is hyperkalemic and uremic. She has been admitted to the Intensive Care Unit and has received Kayexalate and gentle fluids. She is now relatively stable and I have had discussion with her today about the potential for dialysis going forward. She does have a medical history of hypertension, aortic insufficiency, hyperlipidemia, peripheral arterial disease, carotid artery disease, right-sided heart failure, diastolic heart failure, coronary artery bypass graft, coronary artery disease, multiple episodes of acute kidney injury. At one point, she required dialysis at the time of her coronary artery bypass surgery. She has a history of severe mitral regurgitation with mitral valve replacement, type 2 diabetes, peripheral neuropathy, seizure disorder, hysterectomy, anemia, anxiety, history of ovarian cancer with tumor resection, depression, and carotid endarterectomy. She has listed allergy to morphine. MEDICATIONS: 1. Protonix. 2. Potassium. 3. Norvasc. 4. Zoloft. 5. Coreg. 6. Sucralfate. 7. Fenofibrate. 8. Gabapentin. 9. Simvastatin. 10.Lisinopril. 11.Lasix. 12.DuoNeb. 13.Lantus insulin. 14.NovoLog. 15.Tylenol. 16.Xanax. 17.Sublingual nitroglycerin. For specifics of dosing, please refer to her order set. She has appropriately had withheld her Lasix, lisinopril, and potassium since the time of her admission. FAMILY SOCIAL HISTORY: Did not contribute. ADMIT: 01/01/2017 RM/LOC: 316 [facility] MR#: [id number] [address] [address] [place] [address] Consultation SEX: F AGE: 71 : 1945 REVIEW OF SYSTEMS: She states that she got something to help her sleep and now she is having trouble waking up. We are going to approach about the potential for hemodialysis, she is reluctant but willing to discuss this with Dr. Bahena when he returns in the morning. PHYSICAL EXAMINATION: GENERAL: She is globally weak. She does have murmur across her precordium. HEART: Regular. She has some fine crackles in her bases of her lungs. ABDOMEN: Soft. There is no peripheral edema. LABORATORY DATA: Her sodium is 137, potassium currently 5.8, BUN 94, creatinine 3.5, blood sugar 132. Her hemoglobin is 9.3. Chest x-ray, suggestive of some interstitial edema. IMPRESSION: chronic kidney disease with acute kidney injury and hyperkalemia, uremia, and fluid overload. PLAN: I am going to repeat the dose of Kayexalate. Continue gentle IV fluids. I will hold her n.p.o. after midnight to consider the placement of temporary dialysis catheter. Tomorrow, Dr. Bahena will be back and can help for decisions regarding dialysis therapy and renal replacement. Perez Newby DO/ modl JOB #: [id number] CC: Charlie Roa, Attending Physician Charlie Roa, Family Physician
--- NOTE | 2017-01-07 12:46 | HP ---
ADMIT: 01/01/2017 RM/LOC: 316 [facility] MR#: [id number] [address] [address] [place] [address] History and Physical SEX: F AGE: 71 : 1945 DATE OF SERVICE: CHIEF COMPLAINT: Fatigue and shortness of breath x3 days. HISTORY OF PRESENT ILLNESS: Ronda is a 71-year-old female with a complicated past medical history including stage 3 chronic kidney disease, coronary artery disease, status post 3-vessel CABG in 2014, uncontrolled insulin-dependent type 2 diabetes mellitus, severe mitral regurg status post mitral valve replacement, valvular heart disease, diastolic heart failure, and severe pulmonary hypertension, who was admitted with a 3-day history of increasing fatigue and shortness of breath. The patient states that she has also noted about a 20-pound weight gain in the last few days. She complains of an occasional nonproductive cough, but no chest pain, headache, vision changes, lower extremity swelling, abdominal pain, nausea, or vomiting. She was most recently admitted to the hospital on December 09, 2016 and was admitted for a left tibia and fibula fracture. She underwent an open reduction and internal fixation at that time and then was discharged to [facility] for rehab. In the Emergency Department, she was requiring 2 L of oxygen to keep her sats above 90%. She is chronically on 1 L of oxygen. Her labs were significant for creatinine of 3.7 (Of note, it was down to 1.2 in November) and a potassium was 6.2. Her troponin was mildly elevated to 0.017 as well. Her chest x-ray showed some pulmonary edema, and her EKG was significant for sinus bradycardia, which is not a new finding in Ronda. PAST MEDICAL HISTORY: 1. Multivessel coronary artery disease, status post 3-vessel CABG in January of 2015. 2. Severe mitral regurg status post mitral valve replacement in January of 2015 with a bioprosthetic valve. 3. Valvular heart disease with moderate aortic insufficiency. 4. Severe pulmonary hypertension with tricuspid regurg. 5. Hypertension. 6. Hyperlipidemia. 7. Type 2 diabetes with long-term poor control and multiple microvascular complications. 8. Diabetic peripheral neuropathy. 9. Diabetic nephropathy with chronic kidney disease stage 3. 10.Anemia of chronic disease. 11.Carotid occlusive disease status post left carotid endarterectomy in December of 2014. 12.Chronic GERD and esophageal reflux. 13.Depressive disorder. 14.Chronic diastolic heart failure. 15.Chronic cerebrovascular disease. 16.Osteoporosis. PAST SURGICAL HISTORY: 1. Left open reduction and internal fixation of the tibia and fibula in November of 2016. ADMIT: 01/01/2017 RM/LOC: 316 [facility] MR#: [id number] [id number] [place] [id number] [place] [address] History and Physical SEX: F AGE: 71 : 1945 2. CABG with mitral valve replacement on 02/02/2015. 3. Left carotid endarterectomy on 01/01/2015. 4. Total abdominal hysterectomy and BSO several years ago. 5. ORIF of a trimalleolar fracture of her left ankle in May of 2013. 6. C1 cervical fracture, but this was managed non-operatively with a halo immobilization of her cervical spine. MEDICATIONS: Current med list shows: 1. Protonix 40 mg daily. 2. Potassium chloride 20 mEq daily. 3. Norvasc 5 mg daily. 4. Zoloft 50 mg daily. 5. Coreg 3.125 mg b.i.d. 6. Sucralfate 1 g t.i.d. before meals. 7. Fenofibrate 160 mg at bedtime. 8. Gabapentin 300 mg at bedtime. 9. Simvastatin 40 mg at bedtime. 10.Lisinopril 5 mg daily. 11.Lasix 40 mg daily. 12.DuoNeb 3 times daily. 13.DuoNeb q.1 hour p.r.n. 14.Lantus 14 units at bedtime. 15.NovoLog 5 units before meals. 16.NovoLog moderate dose sliding scale insulin before meals and at bedtime. 17.Tylenol 650 mg every 4 hours as needed. 18.Xanax 0.5 mg every 6 hours as needed. 19.Nitroglycerin 0.4 mg every 5 minutes as needed x3. 20.Imodium 2 mg every 4 hours as needed. ALLERGIES: SHE HAS A REACTION TO MORPHINE, WHICH CAUSES SEVERE ITCHING. SOCIAL HISTORY: The patient is retired. She is currently living at [facility]. She denies any tobacco use, alcohol, or illegal drug use. FAMILY HISTORY: Her mother of heart attack at age 56. She also had poorly controlled diabetes. Her dad of lung cancer related to smoking. She also has a brother, who of colon cancer, a brother who in childhood of leukemia, and a sister who has lung cancer. There is a strong family history of diabetes, coronary artery disease, and cancer. REVIEW OF SYSTEMS: A 10-point review of systems was reviewed and negative other than that stated above in the HPI. PHYSICAL EXAMINATION: VITAL SIGNS: Blood pressure 131/31, pulse 44, respirations 19, temp 97.8, and saturating 97% on 1 L. GENERAL: She is sleepy, but oriented x3, in no acute distress. HEENT: Mucous membranes are moist. Nose clear and atraumatic. No jugular venous distention. ADMIT: 01/01/2017 RM/LOC: 316 [facility] MR#: [id number] [address] [address] [place] [address] History and Physical SEX: F AGE: 71 : 1945 HEART: Bradycardic with holosystolic murmur. LUNGS: Crackles at the bilateral lung bases. ABDOMEN: Slightly distended, nontender with positive bowel sounds. EXTREMITIES: No edema. LABORATORY DATA: Sodium 135, potassium 6.2, creatinine 3.7, and magnesium 2.8. BNP was 1689. Of note, this was up to 8802 in November. Troponin 0.017, CK is 17. White count 3.7, hemoglobin 9.3, and platelets 135. EKG shows sinus bradycardia. Lactic acid was 0.9. UA was negative. Chest x-ray showed some pulmonary edema. ASSESSMENT AND PLAN: 1. Acute renal failure. I did call Dr. Newby, who is on-call for Dr. Bahena this week. He will plan to see her in the morning. The plan for tonight will be to give her some Kayexalate to bring her potassium down and gentle fluid hydration. She will likely need dialysis on Tuesday if the patient agrees. We will plan on holding her Lasix, lisinopril, and oral potassium replacement. She is making her own urine, so she is not going to need any Lasix. 2. Chronic kidney disease, stage 3. 3. Insulin-dependent type 2 diabetes. Continue her home insulin. 4. Chronic diastolic heart failure. She did have an echo December 31 that showed an EF of 60% to 65%. 5. Coronary artery disease, status post 3-vessel coronary artery bypass graft in 2014. 6. Bradycardia. If she continues to run low 40s for heart rate, we will go ahead and hold her p.m. dose of Coreg tonight. 7. Severe pulmonary hypertension. 8. Valvular heart disease. 9. Anemia of chronic disease. Roxane Nieves DO Resident / Cameron De La Paz MD / modl JOB #: [id number] CC: Charlie Roa, Attending Physician Charlie Roa, Family Physician
--- NOTE | 2017-01-09 19:43 | ER ---
ADMIT: 01/01/2017 RM/LOC: 316 [facility] MR#: [id number] [address] [address] [place] [address] Emergency Room Report SEX: F AGE: 71 : 1945 DATE: 01/01/2017 CHIEF COMPLAINT: Weight gain, feels weak, no energy. HISTORY OF PRESENT ILLNESS: The patient is a 71-year-old female, who comes in from [facility] stating that for the past 3-4 days, she has progressively become more weak and feels like she has no energy. Additionally, apparently, there has been 10-15 pounds' weight gain over the past two days. She does have a history of chronic kidney disease and has been on dialysis back in 2015 for a short period of time. She sees Dr. Bahena, who manages her kidney disease. The patient denies any chest pain at this time. She does state she has a little bit more shortness of breath than normal, but she does have some shortness of breath at baseline and normally uses 1 L of oxygen. She is not having any fevers or chills that she is aware of. Not had any change in bowel or bladder function. REVIEW OF SYSTEMS: Ten-point review of systems is done and otherwise negative except as in HPI. PAST MEDICAL HISTORY: Significant for: 1. Coronary artery disease. 2. Diabetes. 3. Hypertension. 4. COPD. 5. CVA. 6. Chronic kidney disease. 7. Pulmonary hypertension. 8. Peripheral neuropathy. 9. GERD. 10.Osteoporosis. PAST SURGICAL HISTORY: 1. Cardiac bypass. 2. Hysterectomy. 3. Mitral valve replacement. 4. CABG. 5. Carotid endarterectomy. MEDICATIONS: See nurse's note. ALLERGIES: MORPHINE. SOCIAL HISTORY: The patient is a former smoker. Denies drug or alcohol use. PHYSICAL EXAMINATION: See T-sheet for complete physical exam. GENERAL: The patient is not in distress. ABDOMEN: She does have a fairly protuberant abdomen which she states feels ADMIT: 01/01/2017 RM/LOC: 316 [facility] MR#: [id number] [address] [address] [place] [address] Emergency Room Report SEX: F AGE: 71 : 1945 bloated, but is otherwise nontender. LABORATORY DATA: White count is 3.7, hemoglobin 9.3, platelets 135. Potassium is 6.2, BUN 94, glucose 247. Creatinine 3.7, magnesium 2.8, calcium 8.7. BNP 1689. Lactic acid 0.9. GFR is 12. Troponin 0.017. Urinalysis is normal except for it is hazy. ABG on 1 L shows a pH of 7.39, pCO2 of 39.6, PO2 of 86. Chest x-ray shows some slight haziness, right perihilar, but I do not see any other significant changes when compared to previous chest x-ray, it shows nothing acute. EKG shows sinus bradycardic rhythm with a rate of 48. I did review previous visits and hospitalizations, and it does appear the patient has had sinus bradycardic rhythm in the past. EMERGENCY DEPARTMENT COURSE: Due to the patient's chronic kidney disease and her weight gain, I am concerned of worsening kidney function which is confirmed with a creatinine of 3.7 today. Her potassium is 6.2. Her EKG did not show any peaked T-waves. She did not receive Lasix in the Emergency Department as her creatinine is now 3.7, and is noted that she is on potassium replacement and is currently not having any signs of severe hyperkalemia. PLAN: I spoke to Dr. De La Paz, who was on today for the patient's primary care physician, and we will be admitting the patient to the ICU because of her hyperkalemia. DIAGNOSES: 1. Acute renal failure. 2. Hyperkalemia. 3. Bradycardiac. 4. Acute on chronic renal disease. 5. Short of breath. 6. Chronic obstructive pulmonary disease. Matthew Kwan MD/ petey JOB #: [id number] CC: Charlie Roa MD, Attending Physician Charlie Roa MD, Family Physician
--- NOTE | 2017-01-20 10:18 | DS ---
ADMIT: 01/01/2017 RM/LOC: 316 [facility] MR#: [id number] [address] [address] [place] [address] Discharge Summary SEX: F AGE: 71 : 1945 ADMISSION DATE: 01/01/2017 DISCHARGE DATE: 01/04/2017 DISCHARGE DIAGNOSES: 1. Severe mitral valve stenosis. 2. Acute on chronic renal failure. 3. Hyperkalemia. 4. Chronic kidney disease stage 4. 5. Type 2 insulin-dependent diabetes. 6. Chronic diastolic heart failure. 7. Coronary artery disease, status post three vessel CABG. 8. Bradycardia. 9. Severe pulmonary hypertension. 10.Anemia of chronic disease. CONSULTS: 1. Nephrology. 2. Cardiology. HISTORY OF PRESENT ILLNESS: Ronda is a 71-year-old female with complicated past medical history, who was admitted with a 3-day history of increasing fatigue and shortness of breath. The patient had stated that she had gained approximately 20 pounds in the last few days. She was also complaining of occasional nonproductive cough but no chest pain, headache, vision changes or lower extremity swelling, abdominal pain, nausea or vomiting. She was most recently admitted to the hospital on December 09, 2016 for left tibia and fibula fracture. She underwent an open reduction and internal fixation at that time, and was then discharged to [facility] for rehab. In the emergency room, she was requiring 2 L of oxygen to keep her sats above 90%. She is chronically on 1 L of oxygen. Her labs are significant for creatinine of 3.7 (of note, it was down to 1.2 in November) and potassium of 6.2. Her troponin was mildly elevated to 0.017 as well. Her chest x-ray showed some pulmonary edema. An EKG was significant for sinus bradycardia which is not a new finding in Ronda. HOSPITAL COURSE: Upon admission, Ronda was given several doses of oral Kayexalate to bring her potassium down. She became short of breath and had some nonsustained runs of ventricular tachycardia and so she was put on BiPAP and Lasix because it was thought that the shortness of breath was due to fluid overload. She was also hypotensive and her blood pressure medications had to be held. Nephrology was consulted to manage her chronic kidney disease and elevated potassium and thought that dialysis would be a good route but Ronda did not want to do dialysis at this time and requested to do some further diuresis if possible. It became difficult to diurese Ronda and maintain blood pressures due to her significant mitral valve stenosis so Cardiology was consulted and it was decided that it would be best to send her to [facility] in [place] to discuss possible surgery. Ronda was then transferred to [facility] on 01/04/2017. DISCHARGE MEDICATIONS: ADMIT: 01/01/2017 RM/LOC: 316 [facility] MR#: [id number] [address] [place] [address] [place] [address] Discharge Summary SEX: F AGE: 71 : 1945 1. Carafate 1 g p.o. at night. 2. Coreg 3.125 mg p.o. b.i.d. 3. Neurontin 300 mg p.o. at bedtime. 4. TriCor 145 mg p.o. every night. 5. Zocor 40 mg p.o. at bedtime. 6. Zoloft 50 mg p.o. daily. 7. DuoNeb 3 mL inhaled t.i.d. 8. Heparin 5000 units subcu b.i.d. 9. NovoLog 5 units subcu a.c. 10.NovoLog sliding scale moderate dose insulin a.c. and every night. 11.Lasix 60 mg IV twice daily. 12.Protonix 40 mg IV q.24 hours. DISCHARGE INSTRUCTIONS: The patient was transferred by ambulance to the [facility] on 01/05/2016. Roxane Nieves DO Resident / Charlie Roa MD / vdg JOB #: [id number] CC: Charlie Roa MD, Attending Physician Charlie Roa MD, Family Physician
[2017-01-27] MEDS ORDERED: XANAX DPS0.5 MG PO (09:21)
[2017-01-27] MEDS ORDERED: TYLENOL DPS325 MG PO (09:21)
[2017-01-27] MEDS ORDERED: KLOR-CON M2020 ME1 PO (09:22)
[2017-01-27] MEDS ORDERED: NITROSTAT0.4 MG SL (09:23)
[2017-01-27] MEDS ORDERED: LANTUS100 UNITS/ SQ (09:24)
[2017-01-27] MEDS ORDERED: LASIX40 M1 PO (09:24)
[2017-01-27] MEDS ORDERED: DUONEB DPS3 ML IH (09:25)
[2017-01-27] MEDS ORDERED: LIPITOR40 MG PO (09:25)
[2017-01-27] MEDS ORDERED: COLACE-DPS100 MG PO (09:26)
[2017-01-27] MEDS ORDERED: NOVOLOG100 UNIT/2 SQ (09:26)
[2017-01-27] MEDS ORDERED: PEPCID DPS20 MG PO (09:26)
[2017-01-27] MEDS ORDERED: MAALOX DPS30 ML PO (09:27)
[2017-01-27] MEDS ORDERED: GLUCAGON HCL1 MG IM (09:27)
[2017-01-27] MEDS ORDERED: GLUTOSE 1537.5 GM PO (09:27)
== END 2017-01-04 12:17 | disposition short-term general hospital (02) | DRG 682 ==
LOC: ER 14:19 → 3ICU 16:00
PROVIDERS: ADMIT Family Medicine
DX: N17.9 Acute kidney failure, unspecified (principal); I50.33 Acute on chronic diastolic (congestive) heart failure; J96.91 Respiratory failure, unspecified with hypoxia; I13.0 Hypertensive heart and chronic kidney disease with heart failure and stage 1 through stage 4 chronic kidney disease, or unspecified chronic kidney disease; E11.22 Type 2 diabetes mellitus with diabetic chronic kidney disease; I25.10 Atherosclerotic heart disease of native coronary artery without angina pectoris; E87.5 Hyperkalemia; N18.4 Chronic kidney disease, stage 4 (severe); E11.42 Type 2 diabetes mellitus with diabetic polyneuropathy; I27.2 Other secondary pulmonary hypertension; E87.70 Fluid overload, unspecified; M81.0 Age-related osteoporosis without current pathological fracture; I08.0 Rheumatic disorders of both mitral and aortic valves; I65.23 Occlusion and stenosis of bilateral carotid arteries; D63.8 Anemia in other chronic diseases classified elsewhere; E78.5 Hyperlipidemia, unspecified; R00.1 Bradycardia, unspecified; F32.9 Major depressive disorder, single episode, unspecified; J44.9 Chronic obstructive pulmonary disease, unspecified; E11.65 Type 2 diabetes mellitus with hyperglycemia; K21.9 Gastro-esophageal reflux disease without esophagitis; Z95.1 Presence of aortocoronary bypass graft; S82.892D Other fracture of left lower leg, subsequent encounter for closed fracture with routine healing; Z99.81 Dependence on supplemental oxygen; Z86.73 Personal history of transient ischemic attack (TIA), and cerebral infarction without residual deficits; Z87.891 Personal history of nicotine dependence; Z79.4 Long term (current) use of insulin; Z95.3 Presence of xenogenic heart valve; Z82.49 Family history of ischemic heart disease and other diseases of the circulatory system; Z66 Do not resuscitate

== ENCOUNTER 2017-01-17 08:07 | Inpatient (IN) | payer MEDICARE ==
[~2017-01-17] VITALS: Ht 154.9 cm; Wt 61.9 kg
--- NOTE | ~2017-01-17 | ECH ---
Transthoracic Echocardiography Report (TTE) Demographics Patient Name RONDA WANG Date of Study 01/18/2017 Patient Number [id number] Visit Number [id number] Date of 1945 Room Number 316 Gender Female Number Age 71 year(s) Referring Crispin Irene Clinical Documentation Manager Malaika Lolita [facility] Physician King Poli Oconnor MD Physician Interpreting Yusef DAIGLE Preventative Maintenance Technician Physician Mike Supervising Ordering King Poli Fontanez MD, MD/MLP Physician Nurse Stress Hitch Technician Conclusions Contractility Score Summary At rest the following contractility abnormalities were noted: Hypokinesis of the Apical lateral segment; Dyskinesis of the Mid infero-septal and the Apical septal segments. Contractility of the Mid anterior, the Mid inferior, the Apical inferior, the Apical anterior, the Basal anterior, the Basal inferior and the Apical cap segments was not well visualized. Contractility of all other segments appeared normal. Summary Technically difficult exam to perform, unable to obtain apical 2 chamber. The estimated left ventricular ejection fraction is 50-55%. Mild concentric left ventricular hypertrophy. Paradoxical septal motion consistent with right ventricle pressure and/or volume overload . Moderate to severely enlarged right ventricle with shifting of the interventricular septum to the left during systole. The left atrium is mildly dilated. Severe mitral stenosis. The patient is known to have a 25mm Leon perimount aortic valve reversed to place into the mitral position bioprosthetic mitral valve.Mean mitral valve gradient 14mmHg. Trivial mitral regurgitation by color Doppler. There is mild to moderate aortic regurgitation by color Doppler. Resting LVOT velocity is 2.3 m/s, with a peak gradient of 21 mmHg, and mean gradient of 10.5 mmHg suggestive of left ventricular outflow tract obstruction at rest. During valsalva maneuver, LVOT velocity increases to 3.46 m/s, peak gradient of 45 mmHg, mean gradient of 26 mmHg consistent with dynamic left ventricle outflow obstruction. Severe tricuspid regurgitation by color Doppler. There is moderate pulmonary hypertension. The pulmonary pressure (RVSP) is 49 mmHg. Pleural effusion present. Recommendation The patient will be given the results of this study by the physician who ordered the exam. Procedure Type of Study TTE procedure:Echo Limited SF. Procedure Date Date: 01/18/2017 Start: 10:37 AM Technical Quality: Adequate visualization Indications:Shortness of breath, Pleural effusion, Congestive heart failure, Coronary artery disease and History of mitral valve replacement. Additional Indications:limited echo for mitral valve and LVOT obstruction, s/p Alcohol septal ablation Appropriate Use Criteria: 9 Height: 61 inches Weight: 136 pounds BSA: 1.6 m Rhythm: Within normal limits HR: 72 bpm BP: 119/46 mmHg Allergies - Morphine. M-Mode/2D Measurements LV Diastolic Dimension: 3.12 cm LV Systolic Dimension: 3.8 cm LV Septum Diastolic: 1.07 cm LV PW Diastolic: 1.07 cm AO Root Dimension: 2.11 cm LA Dimension: 3.38 cm LVOT VTI: 45.06 cm RV Base: 3.3 cm RV Mid: 3.4 cm RV Length: 6.7 cm Doppler Measurements AV Peak Velocity: 3.59 m/s MV Peak E-Wave: 3.12 m/s AV Peak Gradient: 51.55 mmHg MV Peak A-Wave: 1.91 m/s AV Mean Gradient: 26.53 mmHg MV E/A Ratio: 1.63 LVOT Peak Velocity: 2.31 m/s MV P1/2t: 84.1 msec MV Mean Gradient: 14.22 mmHg AV P1/2t: 405.8 msec TR Velocity:3.31 m/s MV Deceleration Time: 281.8 msec TR Gradient:43.77 mmHg MV Area (PHT): 2.62 cm Estimated RAP:5 mmHg PV Peak Velocity: 1.08 m/s Estimated RVSP: 49 mmHg PV Peak Gradient: 4.7 mmHg Estimated PASP: 48.77 mmHg RA Area: 9.65 cm Findings Left Ventricle The left ventricle is normal in size . Mild concentric left ventricular hypertrophy. Paradoxical septal motion consistent with right ventricle pressure and/or volume overload . Right Ventricle Moderately to severely enlarged with shift of the interventricular septum to the left during systole. Left Atrium The left atrium is mildly dilated. Right Atrium Normal right atrial size. Mitral Valve Severe mitral stenosis. The patient is known to have a 25mm Leon perimount aortic valve reversed to place into the mitral position bioprosthetic mitral valve.Mean mitral valve gradient 14mmHg. Trivial mitral regurgitation by color Doppler. Aortic Valve There is mild to moderate aortic regurgitation by color Doppler. Resting LVOT velocity is 2.3 m/s, with a peak gradient of 21 mmHg, and mean gradient of 10.5 mmHg suggestive of left ventricular outflow tract obstruction at rest. During valsalva maneuver, LVOT velocity increases to 3.46 m/s, peak gradient of 45 mmHg, mean gradient of 26 mmHg consistent with dynamic left ventricle outflow obstruction. Tricuspid Valve Normal tricuspid valve structure and function. Severe tricuspid regurgitation by color Doppler. There is moderate pulmonary hypertension. The pulmonary pressure (RVSP) is 49 mmHg. Pulmonic Valve The pulmonic valve is not well visualized. Pericardial Effusion No evidence of pericardial effusion. Miscellaneous Visualized portions of the aortic root and ascending aorta appear normal in size. Pleural Effusion Pleural effusion present. Contractility Score LV regional wall motion:(0-Non visualized 1-Normal 2-Hypokinesis 3-Akinesis 4-Dyskinesis 5-Aneurysm) Signature
[~2017-01-17 08:07] MED LIST changes: +CARAFATE DPS1 GM PO; +COREG3.125 MG PO; +FENOFIBRATE160 MG PO; +ZESTRIL DPS5 MG PO
--- NOTE | 2017-01-18 14:17 | CO ---
ADMIT: 01/17/2017 RM/LOC: 316 [facility] MR#: [id number] [address] [address] [place] [address] Consultation SEX: F AGE: 71 : 1945 DATE OF CONSULTATION: 01/17/2017 ATTENDING PHYSICIAN: Charlie Roa CONSULTING PHYSICIAN: Alyce Sanders APRN TIME IN: 1340 hours. TIME OUT: 1430 hours. REASON FOR CONSULTATION: Supportive Care consultation was requested by Dr. Roa for discussion of goals for care and code status. HISTORY OF PRESENT ILLNESS: Mrs. Wang is a 71-year-old female with a very complicated past medical history including chronic kidney disease, coronary artery disease, status post CABG, diabetes mellitus type 2, severe mitral valve stenosis as well as diastolic heart failure, and severe pulmonary hypertension. She has been hospitalized multiple times throughout the course of the past year or so. Recently, she was here in early November with a tib-fib fracture. She was last hospitalized before this stay, January 01 through January 04 with shortness of breath and fatigue. She was found to have elevated creatinine as well as potassium. Therefore, Renal was consulted. She was severely volume overloaded and Nephrology recommended hemodialysis; however, the patient declined. She chose to pursue ongoing diuresis. Due to the fact that they were having difficulty with diuresis. She was transferred to [facility] in [place] for evaluation. It sounds like she was evaluated and there are plans for eventual valve replacement. She was sent back to [facility] from [place] on January 14 for rehab. She was readmitted today with shortness of breath and heart failure exacerbation. Due to her complexities, Supportive Care consultation was requested to discuss goals for care. In terms of advanced directives, she has completed a POLST form, which was done in January of 2016. This was on the chart and has directed that she is a do not resuscitate/do not intubate status. I personally helped to complete this POLST form in January and do recall her directing the do not resuscitate/do not intubate status at that time. Initially, at the time of my consult, she is a full code. In terms of decision making, she does have a healthcare power-of- trust and estates attorney, which is on file. Her primary decision maker is her , Santi Wang, whose phone number is #[phone] and secondary is her son, Kelvin Farah, whose phone number is #[phone]. Symptomatically, the patient is lethargic and weak. She appears very debilitated. She denies pain or other complaints at the time of assessment. PAST MEDICAL HISTORY: Coronary artery disease, status post 3 vessel CABG in January of 2015; severe mitral valve stenosis; chronic kidney disease; diabetes mellitus type 2; chronic diastolic heart failure; severe pulmonary hypertension; anemia of chronic disease; recent tib-fib fracture; depression; osteoporosis; GERD; hyperlipidemia; and hypertension. ADMIT: 01/17/2017 RM/LOC: 316 [facility] MR#: [id number] [address] [place] [address] Consultation SEX: F AGE: 71 : 1945 ALLERGIES: THE PATIENT IS ALLERGIC TO MORPHINE THAT CAUSES ITCHING PER RECORDS. CURRENT MEDICATIONS: Please see the patient's MAR for specific routes and dosages. Her current medications are as follows: 1. Glutose. 2. Glucagon. 3. D5 normal saline. 4. D50. 5. Tylenol. 6. Nitrostat. 7. NovoLog. 8. Rocephin. 9. Lasix. SOCIAL HISTORY: The patient is . She has an adult son who is involved with her care. I believe she has multiple children. She is retired. She has been living at [facility]. She denies alcohol, tobacco, or illicit drug use. FAMILY HISTORY: Her mom of heart attack at 56 and she also had poorly- controlled diabetes. Her dad of lung cancer secondary to smoking. She has a brother who of colon cancer and a brother who of childhood leukemia. She has a sister with lung cancer. Overall, there is a strong family history of diabetes, coronary artery disease, and cancer. FUNCTIONAL REVIEW: Prior to her hospital stay, she was at [facility], she was wheelchair dependent. She was requiring mainly assistance to considerable assistance for ADLs. Her intake was normal to reduced. Her palliative performance scale prior to admission was around 50%. Currently, she is in bed. She is total care. She is lethargic. She is not taking anything orally. Her current palliative performance scale is 10% to 20%. REVIEW OF SYSTEMS: A 10-point review of systems was attempted. However, due to the patient's mentation, this was unable to be obtained. PHYSICAL EXAMINATION: GENERAL: The patient is examined in the bed. She is lethargic. She is confused. VITAL SIGNS: Temperature 99.0, pulse 75, respirations 21, blood pressure 115/36, oxygen 96% on O2 via nasal cannula. HEENT. Head is normocephalic. Pupils are 3 mm and brisk. Oral mucosa pink and dry with fair dentition. NECK: Supple. RESPIRATORY: Respirations are equal, nonlabored. LUNGS: Coarse with expiratory wheezes. CARDIOVASCULAR: Rate rhythm regular without murmurs, rubs, or gallops. She does have 2+ generalized edema. GASTROINTESTINAL: Soft and nontender. Bowel sounds are hypoactive. ADMIT: 01/17/2017 RM/LOC: 316 [facility] MR#: [id number] [address] [place] [id number] [place] [address] Consultation SEX: F AGE: 71 : 1945 MUSCULOSKELETAL: Generalized weakness. INTEGUMENTARY: Skin turgor is fair. NEUROLOGIC: Lethargic. Disoriented. PSYCHIATRIC: Calm. No agitation noted. IMPRESSION: 1. Physical debility. 2. Lethargy. 3. Confusion. 4. Malaise. 5. Fatigue. 6. Severe mitral valve stenosis. 7. Chronic kidney disease. 8. Diastolic heart failure. 9. Severe pulmonary hypertension. 10.Diabetes mellitus type 2. 11.Palliative care. 12.The patient is a full code, however, transitioned to DNR/DNI during our discussion. PLAN OF TREATMENT: At the time of assessment, the patient is lethargic and unable to participate in medical decision making. I was able to call the patient's healthcare [id number] and spouse, Santi, and reviewed overall the patient's status and goals for the time ahead. At this time, Cardiology consult is still pending. Therefore, we will await their evaluation before further discussing any goals for the time ahead. I did review code status with the patient's and he directs that she is to be a do not resuscitate/do not intubate status. This is consistent with her POLST form that she completed last year and is also consistent with the code status that she was during her last hospital stay. The patient's is able to verbalize to me in his own words what he is directing in terms of wanting her to be a do not resuscitate/do not intubate status. He understands that she is very sick and agrees to ongoing discussions in the time ahead pending her status. We would like to thank Dr. Roa for the invitation to participate in this patient's care. Total consultation time was 50 minutes from 1340 hours to 1430 hours with 30 minutes from 1345 hours to 1415 hours spent [id number] with the patient and/or on the phone with her discussing goals for care and providing counseling and support. The plan of care was discussed with nursing. Alyce Sanders APRN/ petey JOB #: [id number] CC: Charlie Roa, Attending Physician Charlie Roa, Family Physician
--- NOTE | 2017-01-19 10:41 | CO ---
ADMIT: 01/17/2017 RM/LOC: 316 [facility] MR#: [id number] [address] [address] [place] [address] Consultation SEX: F AGE: 71 : 1945 DATE OF CONSULTATION: 01/17/2017 ATTENDING PHYSICIAN: Charlie Roa CONSULTING PHYSICIAN: Stanislav aBhena MD REASON FOR CONSULTATION: Chronic kidney disease stage 3. HISTORY OF PRESENT ILLNESS: The patient is a 71-year-old female, who is well known to me. She has had several hospital admissions for congestive heart failure. She recently had a transfer to [facility], where she had an evaluation for mitral stenosis and appears that she had a mitral valvuloplasty at that time. She was discharged from the hospital three days ago. Her surgical procedure was couple of days prior to her discharge. She was apparently doing well until yesterday and starting last night, she started having some shortness of breath. She had a fever this morning of 101 Fahrenheit reportedly and in the ER, her temperature was 100 Fahrenheit. She was evaluated in the emergency room and was thought to have a pneumonia as well as CHF and is currently being treated with antibiotics and she did receive a dose of furosemide done in the emergency room. She is responding well to that. Her oxygen requirement is 5 L nasal cannula currently. She is unable to give me a history. She wakes up to verbal stimulus, but is nonconversant. The history is obtained through her family that includes her daughter and her . REVIEW OF SYSTEMS: Unobtainable secondary to the patient's condition. PAST MEDICAL HISTORY: 1. Hypertension. 2. Dyslipidemia. 3. Aortic insufficiency. 4. Mitral stenosis. 5. Right-sided heart failure secondary to mitral valve disease. 6. Coronary artery disease, status post CABG in December 2014. 7. Multiple episodes of acute kidney injury. She required renal replacement therapy post CABG in December 2014. 8. Severe MR with mitral valve replacement in December 2014 with a recent mitral valvuloplasty. 9. Type 2 diabetes mellitus. 10.Peripheral neuropathy. 11.Recurrent acute kidney injury. 12.Seizure disorder. 13.Hysterectomy. 14.Anemia. 15.Anxiety. 16.Ovarian cancer, status post ovarian tumor removal. 17.Depression. 18.Left carotid endarterectomy. 19.Left Bankart fracture. ADMIT: 01/17/2017 RM/LOC: 316 [facility] MR#: [id number] [address] [address] [place] [address] Consultation SEX: F AGE: 71 : 1945 ALLERGIES: MORPHINE. MEDICATIONS: Reviewed and addressed in the chart. FAMILY HISTORY: One of her cousin had chronic kidney disease and received a kidney transplant. Etiology unknown. SOCIAL HISTORY: She was living [facility] prior to this hospitalization. She is a lifelong nonsmoker, nonalcoholic. Has a very supportive family that includes her as well as her daughter. PHYSICAL EXAMINATION: VITAL SIGNS: Temperature 98.6 Fahrenheit, pulse 77, blood pressure 125/41, and saturating 96% on 5 L nasal cannula. GENERAL: She is in bed, appears ill. HEENT: Head is nontraumatic and normocephalic. Pale conjunctivae. Dry mucosa. CHEST: With wheezes bilaterally. CVS: She has a murmur in her aortic area. ABDOMEN: Soft and nontender. EXTREMITIES: Trace upper extremity edema, 1+ lower extremity edema. SKIN: No rash or nodules. NEUROLOGIC: She is unable to give me history, but wakes in response to verbal stimulus. LABORATORY DATA: Reviewed. BMP with sodium 139, potassium 4.8, and creatinine 1.5. Hemoglobin 9.2. Urinalysis without any hematuria, proteinuria, or leukocyte esterase. Chest x-ray, she has pulmonary edema that looks better. ASSESSMENT AND PLAN: 1. Chronic kidney disease stage 3. 2. Congestive heart failure/pulmonary edema. ADMIT: 01/17/2017 RM/LOC: [address] [facility] MR#: [id number] [address] [address] [place] [address] Consultation SEX: F AGE: 71 : 1945 Her kidney function is stable and is at her baseline. She has had a recent valvuloplasty and quite frankly, her volume status is better compared to her recent hospitalizations. She is on antibiotics for a pneumonia and she is responding well to diuretics. I will judiciously diurese her during this hospitalization. I will await Cardiology evaluation to see if there is any other options left from a cardiac standpoint. I discussed with the family as to how this is a setback considering her recurrent hospitalizations and we have had extensive discussions previously about palliative care if this continues to be a problem. They acknowledged this and are aware of this fact. Thank you for this consultation. Please do not hesitate to contact with any questions. Stanislav Bahena MD/ petey JOB #: [id number] CC: Charlie Roa, Attending Physician Charlie Roa, Family Physician
--- NOTE | 2017-01-22 12:42 | HP ---
ADMIT: 01/17/2017 RM/LOC: 415 [facility] MR#: [id number] [address] [address] [place] [address] History and Physical SEX: F AGE: 71 : 1945 DATE OF SERVICE: CHIEF COMPLAINT: Severe shortness of breath, respiratory difficulty with altered mental status. CLINICAL HISTORY: Ronda is a very debilitated 71-year-old female, chronically ill, with extremely complicated past medical history including recent admission to [facility] on 01/01/2017 with acute respiratory failure and congestive heart failure at that time. She was at [facility] from 01/01/2017 through 01/04/2017. She was then transferred to [facility] for further Cardiology evaluation of her dvggo-rv-ommhock systolic and diastolic congestive heart failure. She was at the [facility] on 01/04/2017, and was there, she was transferred to [facility] on 01/04/2017, and then dismissed back to [facility] on Tuesday afternoon, 01/14/2017. She has been back at the fdc for only 3 days and is now brought from the fdc to the emergency room because of her acute respiratory distress. She apparently had done well for about 36 hours. Then, on 01/16/2017, started to be a little more short of breath, more dyspneic. Overnight, her dyspnea and shortness of breath significantly worsened, they were having trouble keeping her sats in the 90% range, she was having O2 saturation down into the 70s and 80s. For that reason, she was transferred to the ER once again, where she was evaluated in the ER where chest x-ray showed cardiomegaly with bilateral pulmonary vascular congestion and ground-glass type infiltrates consistent with either pneumonia or heart failure with extensive infiltrates in her left chest. The patient has had a progressively worsening spiral or recurring admissions related to her congestive heart failure as well as her chronic kidney disease and pulmonary hypertension. The patient has struggled over the last 2 months, she was admitted to [facility] on 11/26/2016 with a fracture of her left distal tibia and fibula which required open reduction and internal fixation. Postoperatively following her surgical procedure, she had significant respiratory distress and was in the ICU for several days and was briefly on the ventilator for her respiratory failure. She was then transferred on 12/03/2016 to [facility]. She was at the [facility] for less than a week when she started having acute respiratory symptoms once again and had to be transferred back to the hospital on the morning of 12/09/2016, hospitalized with respiratory failure due to pneumonia and congestive heart failure at that time. She was once again in the hospital from 12/09/2016, until approximately 1 week later. Following that admission on 12/09/2016 after spending about a week in the hospital. She was transferred to [facility] where she stayed for approximately 5-6 days before needing to be readmitted again on 01/01/2017. Other than for these brief fdc stays, she has essentially been hospital confined since the fall on 11/27/2016. She has had recurring congestive heart failure, which is felt to be related to her severe valvular heart disease. The patient as noted was at [facility] from 01/04/2017 through 01/14/2017. While there, she did have a heart catheterization performed, and they apparently did an alcohol injection into the septum to try and treat an outflow tract obstruction to see if that would improve her heart failure. They are also ADMIT: 01/17/2017 RM/LOC: 415 [facility] MR#: [id number] [facility] [address] [address] [place] [address] History and Physical SEX: F AGE: 71 : 1945 planning on possible repeat mitral valve replacement since she has had a previous mitral valve replacement. Her current prosthetic valve is severely scarred and stenotic, and we are looking at need for another mitral valve replacement. However, as noted, she has been back to [facility] for only 3 days and is now once again in congestive heart failure and has significant pulmonary edema. She was once again evaluated in the ER, where she was given IV Lasix, nebulizer treatments, and then started on high-flow O2, at least she did not require BiPAP support while in the ER. She is admitted to the ICU with zskvb-se-lktfmlr heart failure and possible recurrent pneumonia. For additional past history, I refer you to her multiple H and Ps from those admissions of 11/27/2016, 12/09/2016, and 01/01/2017. PAST MEDICAL HISTORY: She has had numerous hospitalizations over the last couple of years, too numerous for her to count and keep track of. I refer you to old records for recent hospitalizations as well as multiple past admission. Her medical problems are noted to include; 1. Multivessel coronary artery disease, status post three-vessel CABG in January of 2015. 2. Valvular heart disease with severe mitral stenosis, status post mitral valve replacement in January of 2015 with bioprosthetic valve. 3. Moderate aortic insufficiency. 4. Severe pulmonary hypertension with tricuspid regurgitation. 5. Hypertension. 6. Hyperlipidemia. 7. Type 2 diabetes with long-term poor control and multiple microvascular complications. 8. Diabetic peripheral neuropathy. 9. Diabetic nephropathy with chronic kidney disease, stage 3. 10.Anemia of chronic disease. 11.Carotid occlusive disease, status post left carotid endarterectomy in December of 2014. 12.Chronic gastroesophageal reflux disease/esophageal reflux. 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 14.Chronic cerebrovascular disease. 15.Osteoporosis, status post recent left tib-fib fracture. 16.Depressive disorder, not otherwise specified. CURRENT MEDICATIONS: Medications include; 1. Lasix 40 mg twice a day. 2. DuoNeb via twin jet nebulizer q.i.d. as well as p.r.n. 3. Lantus 35 units at bedtime. 4. Tylenol 650 mg every 4 hours p.r.n., minor discomfort. 5. Xanax 0.5 mg 1 every 6 hours p.r.n. anxiety. 6. Protonix 40 mg daily. 7. Zoloft 50 mg daily. 8. Coreg 3.125 mg twice a day. 9. Carafate 1 g t.i.d. 10.Fenofibrate 160 mg at bedtime. ADMIT: 01/17/2017 RM/LOC: 415 [facility] MR#: [id number] [address] [address] [place] [address] History and Physical SEX: F AGE: 71 : 1945 11.Gabapentin 300 mg at bedtime. 12.Atorvastatin 40 mg at bedtime. 13.NovoLog 5 units before each meal. 14.NovoLog by moderate dose sliding scale. In addition to that 5 units prior to each meal. ALLERGIES: SHE IS ALLERGIC TO MORPHINE. OTHER SIGNIFICANT MEDICAL EVENTS: Include history of cervical spine fracture of C1 due to fall in May of 2016, history of closed head injury due to fall in June of 2015, history of trimalleolar fracture of her left ankle due to fall in May of 2013. History of previous benign ovarian tumor removal. As noted, she had a left carotid endarterectomy on 01/01/2015. Three-vessel CABG on 02/02/2015 with mitral valve repair replacement. A remote past history of total abdominal hysterectomy with bilateral salpingo- oophorectomy. SOCIAL HISTORY: The patient is . She has been fdc confined for the past several months. Prior to that, she was living at home with her , Santi. They are both retired. FAMILY HISTORY: The patient's mother of a heart attack at age 56. Her mother was also a poorly controlled diabetic. Her father of lung cancer related to his heavy smoking. She has a brother who of colon cancer, another brother who in stone lathe operator of leukemia. She notes her sister who also is a smoker has lung cancer. She notes there is a strong family history of diabetes, coronary artery disease, and cancer in her family. REVIEW OF SYSTEMS: CONSTITUTIONAL: The patient complains of being extremely fatigued and tired. Notes she has been too weak to care for herself at the fdc. Essentially spends the entire weekend in bed at the fdc. HEENT: No new eye, ear, nose, or throat complaints. She denies any upper respiratory congestion. PULMONARY: Marked dyspnea. Severe shortness of breath with any activity. Marked orthopnea. She complains of cough with minimal sputum production. No hemoptysis. CARDIAC: She denies any chest pain, has not had any angina or cardiac-related chest discomfort, extensive cardiac history, including her ischemic coronary artery disease, status post CABG as well as a significant valvular heart disease. Severe pulmonary hypertension secondary to her cardiac disease. GASTROINTESTINAL: Did have limited GI bleed during her hospitalization in November. She has not noticed any recent melena or hematochezia. Complains of constipation. GENITOURINARY: Has been incontinent to urine, too weak to get back and forth to the bathroom. No dysuria or flank pain. Has chronic kidney disease, stage 3. Has had previous renal failure, history of temporary dialysis in 2015 following her cardiac surgery. ADMIT: 01/17/2017 RM/LOC: 415 [facility] MR#: [id number] [address] [place] [id number] [place] [address] History and Physical SEX: F AGE: 71 : 1945 MUSCULOSKELETAL: Ongoing back pain as well as pain in her left leg related to her recent fracture. The patient has been nonambulatory since that fracture on 11/27/2016. NEUROLOGIC: She has severe neuropathy in both feet and lower extremities. Has history of cerebrovascular disease. Has had prior TIA events. No new focal neurologic symptoms. INTEGUMENT: She denies any rashes or areas of skin breakdown. PHYSICAL EXAMINATION: VITAL SIGNS: On her physical exam at this time, her temp is 98.6, pulse 77, respirations 21, blood pressure 125/41, and O2 saturation is 96%. Weight is 136 pounds. GENERAL: The patient is a very frail, debilitated 71-year-old female, who appears much older than her stated age. She is in no acute distress resting with O2 on at 5 L via nasal cannula. She is mildly confused, but is able to respond to most questions appropriately. HEENT: Her pupils are equal and reactive. Sclerae are nonicteric. Conjunctivae are noninflamed. She has no significant nasal congestion. Her oral mucosa is pink, somewhat dry. Dentition is in poor repair. NECK: Noted to be supple. I cannot appreciate any cervical adenopathy or thyroid enlargement. Does have a scar on the left side of her neck from previous left carotid endarterectomy. She does have some moderate neck vein distention. LUNGS: Today are noted to be clear anteriorly, but very diminished in the bases. Poor air exchange. There were a few fine crackles at both bases. HEART: Noted to have a regular rhythm. She has a loud holosystolic murmur along the left sternal border. She has a grade 2 to 3/6 systolic murmur as well as diastolic murmur. Loud murmurs heard both over the aortic region as well as along the left sternal border. ABDOMEN: Her abdomen is somewhat protuberant, soft, bowel sounds are normoactive. There is no pain response when I palpate her abdomen. I cannot appreciate any masses. No organomegaly. No abdominal bruits. EXTREMITIES: She has 1+ pedal and ankle edema, a little more edema on the left than on the right. No calf tenderness or signs of thrombophlebitis. She has evidence of peripheral vascular disease with atrophic changes of the skin. Her skin is very thin with changes of venous stasis as well. She has no diabetic foot or leg ulcerations, but has marked diminishment to sensation to both light touch and monofilament testing. She dozes off frequently during my exam. Difficult to keep her awake through the course of the exam. I cannot appreciate though any new focal deficits. LABORATORY WORK: Her preadmission laboratory work done in the ER reveals a white count of 5000, hemoglobin 9.2, and platelets of 186,000. Sodium is 139, potassium 4.8, BUN is 25, creatinine 1.5, and her blood sugar is 124. Her troponin I is elevated at 1.69. ProBNP is elevated at 9133. Chest x-ray shows extensive infiltrates in the left chest, marked pulmonary edema, changes of congestive failure with questionable pneumonia in the left lower lobe. ASSESSMENT AT THE TIME OF ADMISSION: ADMIT: 01/17/2017 RM/LOC: 415 [facility] MR#: [id number] [address] [place] [id number] [place] [address] History and Physical SEX: F AGE: 71 : 1945 1. Acute respiratory failure with hypoxia. 2. Rdgem-gn-jbxnnhs combined diastolic and systolic congestive heart failure. 3. Valvular heart disease with severe mitral stenosis, status post previous mitral valve replacement with current restenosis of her bioprosthetic valve. 4. Moderate aortic insufficiency. 5. Severe pulmonary hypertension with tricuspid insufficiency. 6. Atherosclerotic coronary vascular disease, status post previous coronary artery bypass graft. 7. Chronic kidney disease, stage 3. 8. Type 2 diabetes, insulin dependent with multiple diabetic microvascular complications. 9. Hypertension. 10.Hyperlipidemia. 11.Diabetic peripheral neuropathy. 12.Anemia of chronic disease. 13.Carotid occlusive disease, status post left carotid endarterectomy. 14.Marked debility. PLAN: Plan is to admit the patient. We will admit to ICU. We will utilize BiPAP if needed to help maintain respiratory status. We will get urgent Cardiology consult and get their recommendations regarding further management of her valvular heart disease and congestive heart failure. We will also ask Dr. Bahena to assist with management of her chronic kidney disease and to help manage her fluid balance. Once again, we will get palliative care involved since it appears that we are approaching end-stage as far as her cardiac disease is considered. Charlie Roa MD/ petey JOB #: [id number] CC: Charlie Roa, Attending Physician Charlie Roa, Family Physician
--- NOTE | 2017-01-22 21:34 | ER ---
ADMIT: 01/17/2017 RM/LOC: ER [facility] MR#: [id number] [address] [address] [place] [address] Emergency Room Report SEX: F AGE: 71 : 1945 DATE: 01/17/2017 This is a 71-year-old female residing in retirement when she developed sudden onset of shortness of breath this morning. She denied any pain or palpitations, it came on suddenly. She is normally on 1 L of oxygen, she is requiring 5 L of oxygen. She denies chest pain or palpitations. Does complain of some lightheadedness and cough. PAST MEDICAL HISTORY: Significant for CHF, coronary artery disease, hypertension, COPD, she is also diabetic. She had recently been down to [facility] for evaluation of cardiac problems. PHYSICAL EXAMINATION: GENERAL: Reveals an elderly female, in mild amount of distress. HEENT: Normocephalic. LUNGS: Have rhonchi, diffuse, right greater than left. CARDIOVASCULAR: 3/6 systolic ejection murmur. Regular rate and rhythm. ABDOMEN: Obese, soft, nontender. EXTREMITIES: Reveal no edema. NEURO: She is alert and oriented. SKIN: Unremarkable. LABORATORY DATA: EKG shows nonspecific ST changes. Chest x-ray reveals a failure, possible infiltrate. Her hemoglobin is 9.2, BUN 25, glucose 124, and troponin 1.69. The patient is being admitted with exacerbation of CHF and possible pneumonia. Rocephin started in the Emergency Department. The patient was subsequently brought in for further evaluation. Kain Oliver MD/ petey JOB #: [id number] CC: Kain Oliver MD, Attending Physician Charlie Roa MD, Family Physician
[2017-01-27] MEDS ORDERED: XANAX DPS0.5 MG PO (09:21)
[2017-01-27] MEDS ORDERED: TYLENOL DPS325 MG PO (09:21)
[2017-01-27] MEDS ORDERED: KLOR-CON M2020 ME1 PO (09:22)
[2017-01-27] MEDS ORDERED: NITROSTAT0.4 MG SL (09:23)
[2017-01-27] MEDS ORDERED: LASIX40 M1 PO (09:24)
[2017-01-27] MEDS ORDERED: LANTUS100 UNITS/ SQ (09:24)
[2017-01-27] MEDS ORDERED: LIPITOR40 MG PO (09:25)
[2017-01-27] MEDS ORDERED: DUONEB DPS3 ML IH (09:25)
[2017-01-27] MEDS ORDERED: COLACE-DPS100 MG PO (09:26)
[2017-01-27] MEDS ORDERED: NOVOLOG100 UNIT/2 SQ (09:26)
[2017-01-27] MEDS ORDERED: PEPCID DPS20 MG PO (09:26)
[2017-01-27] MEDS ORDERED: GLUTOSE 1537.5 GM PO (09:27)
[2017-01-27] MEDS ORDERED: GLUCAGON HCL1 MG IM (09:27)
[2017-01-27] MEDS ORDERED: MAALOX DPS30 ML PO (09:27)
--- NOTE | 2017-01-27 09:31 | CO ---
ADMIT: 01/17/2017 RM/LOC: 316 [facility] MR#: [id number] [address] [address] [place] [address] Consultation SEX: F AGE: 71 : 1945 DATE OF CONSULTATION: 01/17/2017 ATTENDING PHYSICIAN: Charlie Roa CONSULTING PHYSICIAN: Poli Bernard MD HISTORY OF PRESENT ILLNESS: The patient is a pleasant 71-year-old female, whom I had the opportunity to consult for Cardiology regarding her shortness of breath and elevated troponin. The patient has a personal history of coronary artery disease. She had a CABG with an MVR size 25 [place] aortic valve reversed to the mitral position back in 2014. The patient currently is a resident in a prison in [place], [place]. She obtained shortness of breath, that was not relieved with 5 L of oxygen. The nursing staff then notified the ambulance, which took her to the Emergency Department at [facility]. Upon her arrival, her vital signs revealed a temperature of a 100.3. Her heart rate was 24 and her blood pressure was 147/66. She was severely hypoxic with oxygen saturation 90% on 5 L of oxygen. The patient was last seen in the [facility] on December 27 for a followup of her hospital visit at [facility] for pneumonia and sepsis. The patient has been having problems with fluid retention in the past. The patient was then admitted a week later to [facility] for fluid overload and decompensated acute heart failure. She was then transferred to the [facility] in [place]. A transesophageal echocardiogram showed severe mitral valve stenosis. At that time, she was severely dyspneic on exertion, fatigued. Had orthopnea and paroxysmal nocturnal dyspnea. She was scheduled tentatively for a valvuloplasty on that Tuesday. The patient has also undergone a previous left carotid endarterectomy by Dr. [facility]. The patient also has a history of chronic kidney disease stage [address] Bahena in [place]. At this time, the patient is very fatigued and confused. However, she does know where she is and her name and date of . The patient states that it is difficult to breathe. She can only speak a few words before she has to take a deep breath. PAST MEDICAL HISTORY: Significant for chronic kidney disease stage 3, mitral valve stenosis, chronic heart failure, peripheral arterial disease, hypertension, diabetes mellitus type 2, seizure disorder, gastroesophageal reflux disease, and dyslipidemia. PAST SURGICAL HISTORY: Includes MVR with coronary artery bypass surgery in 2015, cardiac catheterization, left carotid endarterectomy, ORIF of left ankle, spinal fusion, hysterectomy, and ovarian tumor removal. FAMILY HISTORY: Mother of heart disease and she also had diabetes. Diabetes was also in her grandmother and sister. Her father and two brothers had cancer of an unknown type. The patient denies stroke history in her family. ADMIT: 01/17/2017 RM/LOC: 316 [facility] MR#: [id number] [address] [place] [id number] [place] [address] Consultation SEX: F AGE: 71 : 1945 SOCIAL HISTORY: The patient currently resides in a prison in [place], [place]. She is retired. She was previously employed as a Handi-senior business manager. The patient denies tobacco abuse. Follows a regular diet. Does not use caffeine. HOME MEDICATIONS: 1. Acetaminophen 325 mg p.o. q.4 hours p.r.n. 2. Alprazolam 0.5 mg p.o. q.6 hours p.r.n. 3. Ipratropium albuterol 3 mL t.i.d. 4. NovoLog 5 units subcu before meals. 5. Levemir FlexPen 35 units subcu at bedtime. 6. Atorvastatin 40 mg p.o. daily. 7. Carvedilol 3.125 mg p.o. b.i.d. 8. Fenofibrate 160 mg p.o. at bedtime. 9. Furosemide 40 mg p.o. b.i.d. 10.Gabapentin 300 mg p.o. at bedtime. 11.Pantoprazole 40 mg p.o. daily. 12.Sertraline 50 mg p.o. daily. 13.Sucralfate 1 mg p.o. t.i.d. REVIEW OF SYSTEMS: Not able to be obtained due to the patient's current state of confusion and tiredness. PHYSICAL EXAMINATION: Per Dr. Bernard. VITAL SIGNS: Blood pressure 116/40, pulse 75, oxygen saturation is 90% on oxygen, and MAP of 57, lowest. SKIN: [place], warm and dry. EYES: Sclerae clear. No xanthelasmas. ENT: Oral mucosa is pink and moist. No jugular venous distention or carotid bruits. CHEST: Respirations are even and unlabored. Lungs, coarse shallow breathing. HEART: Irregular. ABDOMEN: Soft and nontender. MUSCULOSKELETAL: Gait is normal. EXTREMITIES: 2+ pitting edema. PSYCHIATRIC: Alert and oriented. Mood and affect are appropriate. DIAGNOSTIC DATA: Per Dr. Bernard. BUN 25, creatinine is 1.5, glucose is 124, and magnesium is 2.2. INR is 1.32. CK is 30 and CK-MB is 1.5. Initial troponin is 1.690. White blood cell count is 5, platelets are 186, hemoglobin 9.2, and hematocrit is 29.9. EKG revealed a sinus rhythm with minimal ST-segment elevation. Last echocardiogram revealed an ejection fraction of 60% with moderate aortic regurgitation and moderate tricuspid regurgitation, 12/16/2016. ADMIT: 01/17/2017 RM/LOC: [address] [place] [address] MR#: [id number] [address] [address] [place], [place] [address] Consultation SEX: F AGE: 71 : 1945 ASSESSMENT AND PLAN: Per Dr. Bernard. 1. Severe mitral stenosis. 2. Respiratory failure. 3. Elevated troponin. 4. Coronary artery disease. 5. Chronic kidney disease. We will plan for diuresis at this time as renal function allows. We will also do nebulizers for wheezing. The patient will need long-term plan for mitral valve when more stable. Elevated troponins are more likely due to demand than supply ischemia. Thank you for the Cardiology consult. I have read and agreed with the documentation that has been completed regarding this visit. By signing this record, I attest that the documentation was completed in my physical presence and is an accurate record of the encounter. WANDY Garcia Student / Poli Bernard MD / petey JOB #: [id number] CC: Charlie Roa, Attending Physician Charlie Roa, Family Physician
--- NOTE | 2017-01-27 18:26 | CO ---
ADMIT: 01/17/2017 RM/LOC: [facility] MR#: [id number] [address] [id number] [place] [address] Consultation SEX: F AGE: 71 : 1945 DATE OF CONSULTATION: 01/19/2017 ATTENDING PHYSICIAN: Charlie Roa CONSULTING PHYSICIAN: Jay Hua MD REASON FOR CONSULTATION: Pancytopenia and chronic anemia. HISTORY OF PRESENT ILLNESS: Ms. Wang is a pleasant 71-year-old female with a significant past medical history for CKD, CAD status post CABG about six months ago, type 2 diabetes, severe mitral valve stenosis, and CHF. The patient was admitted earlier this year in November for a tibia fibula fracture. She also was admitted earlier this month with acute on chronic renal failure and volume overload. There was recommendation for hemodialysis, but the patient had declined. The patient was discharged to her temporary correction here in [place] for a few days, but was readmitted approximately two days ago for again hypoxia and shortness of breath thought to be secondary to left-sided heart failure. There is significant concern for her mitral valve stenosis to be contributing to these hospitalizations and outpatient consultation has resulted in at least a discussion of a TAVR or valve in valve replacement operation. The patient has been diuresed over the last two days with a return to her baseline 1 L of chronic oxygen needs. She has not required any transfusions since her November bone fracture admission. She admits that her appetite is very poor and she is eating very poorly as well. She did not get a lot of animal products or meat over the last few months. She has had a long-standing history of anemia, thought to be secondary to chronic kidney disease and anemia of chronic disease and recalls in the past, getting a few IV infusions of iron. Although cannot recall when her last one was. Her overall trend of hemoglobin and platelets have been fairly stable over the last several months. Although there is a notable decrease in her total white count over this last month. It has been persistently in the mid 2s, which seems to be the beginning of a new trend. PAST MEDICAL HISTORY: 1. CAD with CABG in January 2015. 2. Severe mitral valve stenosis. 3. CKD stage 3/4. 4. Diabetes type 2. 5. CHF. 6. Pulmonary hypertension. 7. Anemia of chronic disease. 8. Depression. 9. Osteoporosis. 10.GERD. 11.Hyperlipidemia. 12.Hypertension. ALLERGIES: REPORT OF MORPHINE CAUSING ITCHING NO OTHER MEDICAL ALLERGIES. ADMIT: 01/17/2017 RM/LOC: [facility] MR#: [id number] [address] [place] [id number] [place] [address] Consultation SEX: F AGE: 71 : 1945 MEDICATIONS: Current medications include: 1. Glucagon. 2. Tylenol. 3. Nitrostat. 4. NovoLog. 5. Rocephin. 6. Lasix. SOCIAL HISTORY: The patient is . Her adult son is involved with her care. She is retired and has been recently living in [facility]. No significant alcohol, tobacco, or illicit drug use. FAMILY HISTORY: Significant for heart attack early on in her mother at age 56 with poorly controlled diabetes. Her dad was a smoker and had lung cancer. She had a brother with colon cancer and a brother, who in childhood from leukemia. Sister with lung cancer as well. REVIEW OF SYSTEMS: A complete review of systems was conducted and found to be negative except for what was mentioned above in HPI. PHYSICAL EXAMINATION: VITAL SIGNS: Temperature 99.6, pulse 79, respiratory rate 22, blood pressure 131/43, and saturating 91% on 1 L oxygen. GENERAL: This is an older than stated age appearing adult female, sitting up in a chair. She looks chronically ill. She is otherwise a good historian and is alert and orientated x3. HEENT: Pupils are equal, round, reactive to light. Mouth is free from oral lesions. Moist mucous membranes. NECK: Shows trachea midline with no lymphadenopathy in the cervical chain. HEART: There is a prominent 3/6 systolic murmur maximum at the apex. Regular rate and rhythm. LUNGS: Decreased breath sounds in bilateral bases. Diffuse mild crackles heard throughout. Normal respiratory effort without respiratory retractions. ABDOMEN: Soft, nontender to palpation, and nondistended. Bowel sounds are positive. No hepatosplenomegaly appreciated. EXTREMITIES: No clubbing, cyanosis, or edema. NEUROLOGIC: Cranial nerves II through XII are grossly intact. No focal deficits. MUSCULOSKELETAL: Strength is grossly normal. Range of motion is grossly normal. No swollen or inflamed joints. LABORATORY AND RADIOLOGY: WBC 2.3, hemoglobin 8.6, MCV 100.7, and platelets 124. Trend of hemoglobin, platelets, and WBC was reviewed. Sodium 137, potassium 3.8, bicarb 30, BUN 36, creatinine 1.7 with an estimated GFR of 30, calcium 8.4, magnesium 2.3, and glucose 127. IMPRESSION AND RECOMMENDATIONS: A 71-year-old female with pancytopenia, multiple medical comorbidities: 1. Anemia, multifactorial. The patient's MCV is elevated with a relatively ADMIT: 01/17/2017 RM/LOC: [facility] MR#: [id number] [address] [place] [id number] [place] [address] Consultation SEX: F AGE: 71 : 1945 stable hemoglobin in the mid 8s to mid 9s over the last several months. She did have an episode of decreased hemoglobin associated with her skeletal fractures in November and did require transfusion at that time. She has known chronic anemia with suspicion of anemia of chronic renal disease and anemia of chronic disease contributing. I will send an LDH to rule out any stenotic valve associated hemolysis along with haptoglobin, which is most sensitive for any amount of hemolysis. I will also send general vitamins such as folic acid and B12 as I cannot find any recent values in our system at this time. If these are low, we will gladly be able to replace them as a potentially easy fix. I will also send for ferritin and if this value is less than 100, in the setting of anemia of chronic disease, she could benefit from IV iron. 2. Thrombocytopenia. Her values are chronically mildly low and not significantly changed. No further workup for this apart from the above for the hemoglobin. 3. Leukopenia. This does appear to be a new trend over the last month during these hospitalizations and acute illnesses. I would like to re- evaluate her as an outpatient when she has less acutely ill to see if she recovers. There is a small possibility that the MCV being elevated and a new leukopenia may represent a development of a bone marrow dysfunction such as MDS. She does not appear to be on any culprit medications. Nevertheless, I would like to follow her up as an outpatient prior to consideration of a bone marrow biopsy. I explained the rationale to the patient. As far as this goes and she also expressed desire not to pursue an immediate bone marrow biopsy for this slightly low value. Her low counts have not been an issue as far as severe or recurrent infections to this point. No further prophylaxis from an antibiotic standpoint is needed at these levels. PLAN: To see her in clinic in the next few weeks. Thank you very much for this consultation. Please call for any further questions. Total time spent 60 minutes. Jay Hua MD/ petey JOB #: [id number] CC: Charlie Roa, Attending Physician Charlie Roa, Family Physician
--- NOTE | 2017-02-28 12:53 | DS ---
ADMIT: 01/17/2017 RM/LOC: [facility] MR#: [id number] [id number] [facility] [address] [place], [place] [phone] [place] [address] General Discharge Summary SEX: F AGE: 71 : 1945 ADMISSION DATE: 01/17/2017 DISCHARGE DATE: 01/25/2017 FINAL DIAGNOSES: 1. Acute on chronic combined systolic and diastolic heart failure. 2. Acute respiratory failure with hypoxia. 3. Bacterial pneumonia. 4. Pancytopenia. 5. Type 2 diabetes with diabetic nephropathy. 6. Diabetic peripheral neuropathy. 7. Chronic obstructive pulmonary disease with acute exacerbation due to pneumonia. 8. Acute delirium due to hypoxia. 9. Secondary pulmonary hypertension. 10.Hypokalemia. 11.Anemia of chronic disease. 12.Chronic kidney disease, stage 3. 13.Chronic anxiety disorder. 14.Carotid occlusive disorder. 15.Valvular heart disease with mitral stenosis and aortic insufficiency as well as tricuspid insufficiency. 16.Seizure disorder. 17.Atherosclerotic coronary vascular disease. 18.Major depressive disorder. 19.Hyperlipidemia. 20.Chronic gastroesophageal reflux disease. 21.Cerebrovascular disease. 22.Status post previous mitral valve replacement with recurrent mitral stenosis. COMPLICATIONS: None. OPERATIONS: None. CLINICAL HISTORY: Ronda Chin is a very debilitated 71-year-old female, chronically ill with extremely complicated past medical history including multiple recent admissions with acute respiratory failure. Most recently, she was at [facility] from 01/01/2017 through 01/04/2017. She was then transferred to [facility] in [place] and was in the hospital in [place] from 01/04/2017 until 01/14/2017, transferred to the [facility] for rehab on 01/14/2017. She started having increasing respiratory difficulty and shortness of breath on the evening of 01/16/2017. On the morning of 01/17/2017, she was found to be difficult to arouse. She was dyspneic and hypoxic with O2 sats in the 70s to 80 range. She was transferred to the ER where she was evaluated with chest x-ray showing changes of pulmonary vascular congestion and changes of heart failure as well as possible bibasilar pneumonia. In view of her acute respiratory failure with hypoxia, she was started on BiPAP therapy in the ER and admitted directly to the ICU. For further details of her clinical history as well as her past medical ADMIT: 01/17/2017 RM/LOC: [address] [facility] MR#: [id number] [address] [id number] [place] [address] General Discharge Summary SEX: F AGE: 71 : 1945 history and pertinent findings on physical exam, please see my dictated history and physical. Please also see Dr. Bernard's dictated Cardiology consult Dr. Bahena's dictated Nephrology consult, dictated palliative care consult as well and hematology consult. LABORATORY AND X-RAY SUMMARY FROM THIS ADMISSION: The patient's initial CBC showed a white count of 5,000 with a hemoglobin of 9.2, hematocrit 29.2, platelets were 186,000. Serial CBC showed significant leukopenia on her second hospital day, white count was 2400, hemoglobin 8.4, platelets dropped to 146,000. The patient had worsening of her pancytopenia with white count down to 2200, on 01/20/2017. Hemoglobin down to 8.7. At discharge, her white count was 2700, hemoglobin 8.9, hematocrit 30.7, platelets 158,000. On admission, her ProTime was 13.8, INR 1.32, PTT 34.3. Urinalysis on admission was clear. Chemistry studies were monitored daily because of her aggressive diuresis because of her heart failure and pneumonia. On admission, her sodium was 139, potassium 4.8, BUN was 25, creatinine 1.5, blood sugar 124. As noted, we did monitor her chemistry studies on a daily basis to monitor her renal function as we monitored her diuresis. At discharge, her sodium was 142, potassium 3.9, BUN 13, creatinine 1.1, calculated GFR ranged from 30 to 50 during this hospitalization. On admission, her procalcitonin was normal. Lactic acid was normal at 1.0. On admission, her proBNP was elevated at 9133. On admission, her troponin I was elevated at 1.690. Other cardiac enzymes were normal. Serial cardiac enzymes revealed her troponin I to remain elevated ranging from 1.36 to 1.58. Her blood sugars were monitored q.i.d. because of her diabetes. They ranged from a low of 90 to a high of 262 during this hospitalization. Her vitamin B12 level was elevated at 1361. Folate was greater than 20. Her serum ferritin was high at 1027. Haptoglobin was normal. Blood cultures drawn on admission showed no growth. Urine culture showed no growth. Stools for C. difficile were negative. Blood type was noted to be O positive. Serial chest x-rays were obtained. Follow her congestive failure and pneumonia. She did also have a CT of her chest on admission, which showed some changes of bronchiectasis in the lower lungs. She also had a small left pleural effusion. She also was noted to have incidental finding of cholelithiasis. Changes of mild failure and/or pneumonia in both lung bases. Chest x-rays throughout the course of hospitalization showed resolution of her infiltrates as well as her changes of CHF. Echocardiogram done during this hospitalization showed her EF to be 50% to 55%, severe mitral stenosis, trivial mitral regurgitation, severe tricuspid regurgitation, [id number] pulmonary hypertension. Her EKG showed sinus rhythm with right axis deviation. Old septal infarct. Inferior T-wave abnormalities. HOSPITAL COURSE: The patient was admitted with what was felt to be pneumonia and congestive heart failure causing acute severe respiratory failure with hypoxia. Cardiology was consulted as was Dr. Bahena. Throughout the course of the hospitalization, we also obtained consultation from palliative care and from Hematology because of her pancytopenia. She was treated for her pneumonia with IV antibiotics. She was diuresed with IV Lasix for her ADMIT: 01/17/2017 RM/LOC: 415 [facility] MR#: [id number] [id number] [facility] [address] [place] [phone] [place] [address] General Discharge Summary SEX: F AGE: 71 : 1945 congestive heart failure. She did choose to be a no code, do not resuscitate. Her hospital course was one of slow improvement as her respiratory status improve. She did require BiPAP support over the first couple days of her hospitalization. She slowly improved with resolution of her congestive failure and her pneumonia responded to IV antibiotic therapy. Ultimately, she improved to the point that we were able to get her back to [facility] for continued rehab. MEDICINES AT DISCHARGE: On 01/25/2017 her medications were to include: 1. Potassium 20 mEq b.i.d. 2. Pepcid 20 mg b.i.d. 3. Zithromax 250 mg daily for 3 days. 4. DuoNeb via twin jet nebulizer q.i.d. 5. NovoLog via sliding scale prior to each meal. 6. Lasix 60 mg b.i.d. 7. Colace 100 mg b.i.d. p.r.n. constipation. 8. Glutose 75 g p.r.n. signs and symptoms of hypoglycemia. 9. Maalox p.r.n. indigestion. 10.Tylenol p.r.n. minor discomfort. 11.Glucagon 1 mg IM p.r.n. severe hypoglycemia. 12.Nitrostat sublingual 0.4 mg p.r.n. chest pain. 13.Lantus 15 units at bedtime. 14.Xanax 0.5 mg every 6 hours p.r.n. anxiety. 15.Atorvastatin 40 mg at bedtime. FOLLOWUP: She is to follow up in our office in 5 to 7 days. She is to follow up with Dr. Bahena in approximately one month. She was returned to the alf unit bed at [place]. She was to remain on oxygen at 2 L/minute continuously. She is to follow up with [facility] Cardiology in 10 days. She is to do PT/OT and speech therapy at the residential. She will be a no code, do not resuscitate at the residential. CONDITION AT DISCHARGE: Stable. PROGNOSIS: Extremely poor. Charlie Roa MD/ petey JOB #: [id number] CC: Charlie Rao MD, Attending Physician Charlie Roa MD, Family Physician
== END 2017-01-25 15:00 | DRG 291 ==
LOC: ER 08:07 → 3ICU 10:30 → 4PCU 10:30 → 3ICU 01-18 10:50 → 4PCU 01-18 14:33
PROVIDERS: ADMIT Family Medicine
DX: I13.0 Hypertensive heart and chronic kidney disease with heart failure and stage 1 through stage 4 chronic kidney disease, or unspecified chronic kidney disease (principal); I50.43 Acute on chronic combined systolic (congestive) and diastolic (congestive) heart failure; J96.01 Acute respiratory failure with hypoxia; J15.9 Unspecified bacterial pneumonia; D61.818 Other pancytopenia; E11.22 Type 2 diabetes mellitus with diabetic chronic kidney disease; E11.42 Type 2 diabetes mellitus with diabetic polyneuropathy; T82.858A Stenosis of other vascular prosthetic devices, implants and grafts, initial encounter; J44.1 Chronic obstructive pulmonary disease with (acute) exacerbation; J44.0 Chronic obstructive pulmonary disease with (acute) lower respiratory infection; R41.0 Disorientation, unspecified; I27.2 Other secondary pulmonary hypertension; E87.6 Hypokalemia; D63.8 Anemia in other chronic diseases classified elsewhere; N18.3 Chronic kidney disease, stage 3 (moderate); F41.9 Anxiety disorder, unspecified; I65.29 Occlusion and stenosis of unspecified carotid artery; I08.3 Combined rheumatic disorders of mitral, aortic and tricuspid valves; G40.909 Epilepsy, unspecified, not intractable, without status epilepticus; I25.10 Atherosclerotic heart disease of native coronary artery without angina pectoris; F32.9 Major depressive disorder, single episode, unspecified; E78.5 Hyperlipidemia, unspecified; K21.9 Gastro-esophageal reflux disease without esophagitis; Z99.81 Dependence on supplemental oxygen; Z82.49 Family history of ischemic heart disease and other diseases of the circulatory system; Z98.890 Other specified postprocedural states; Z85.43 Personal history of malignant neoplasm of ovary; Z95.1 Presence of aortocoronary bypass graft; Z95.3 Presence of xenogenic heart valve; Z79.4 Long term (current) use of insulin; Z66 Do not resuscitate